=== PATIENT | male | born 1945 | race Caucasian/White ===

== ENCOUNTER → 2019-02-28 | Outpatient (CLI) | payer MEDICARE, SELFPAY ==
[2019-03-01 00:09] LABS: Absolute Neutrophil Count 4.6 X10^3/uL (2.0-7.7); Basophil# 0.05 X10^3/uL; Basophil% 0.7 % (0-1); Eosinophil# 0.45 X10^3/uL; Eosinophils% 6.5 % (0-5); Hematocrit 46.7 % (40-54); Hemoglobin 16.1 g/dl (13.0-16.5); Lymphocyte % 20.2 % (19-41); Mean Corp Hgb Conc 34.5 g/gl (32-36); Mean Corpuscular Hgb 29.4 pg (27.0-32.0); Mean Corpuscular Volume 85.4 fL (80-94); Mean Platelet Vol. 9.4 fl (6.2-12.0); Monocyte# 0.39 X10^3/uL; Monocyte% 5.6 % (0-10); Neutrophil # 4.62 X10^3/uL (2.7-7.7); Neutrophil % 66.9 % (47-70); Platelet Count 195 K/mm3 (150-450); RBC Distribution Width SD 40.6 fl (35.1-43.9); Red Blood Count 5.47 M/mm3 (4.6-6.2); White Blood Count 6.9 K/mm3 (4.4-11.0)
[2019-03-01 00:12] LABS: POSITIVE COUNT NO; POSITIVE DIFFERENTIAL NO; POSITIVE MORPHOLOGY NO
[2019-03-01 01:04] LABS: BUN 17 mg/dL (7-18); Glucose 133 mg/dL (74-106)
[2019-03-01 01:05] LABS: ALB/GLOB Ratio 1.4 RATIO (0.9-2.4); AST(SGOT) 19 U/L (15-37); Alanine Aminotransfer ALT/SGPT 24 U/L (16-61); Albumin, Serum 4.5 g/dL (3.2-5.0); Alkaline Phosphatase 77 U/L (45-117); Anion Gap 6 (5-15); BUN/Creat Ratio 14.2 RATIO (10-20); Calcium,Total 9.1 mg/dL (8.5-10.1); Chloride 105 mmol/L (98-107); Cholesterol 153 mg/dL (200); EST Glomerular Filtration Rate 63 mL/min (>60); Est Glom Filt Rate - Afr Amer 77 mL/min (>60); Globulin 3.3 g/dL (2.2-4.2); High Density Lipoprotein 53 mg/dL; PSA,Total - Annual Screen 2.15 ng/mL (0.00-4.00); Potassium 4.9 mmol/L (3.5-5.1); Protein, Total 7.8 g/dL (6.4-8.2); Sodium Level 140 mmol/L (136-145); Triglycerides 142 mg/dL; Very Low Density Lipoprotein 28 mg/dL (5-40)
== END | disposition home or self-care (01) ==
PROVIDERS: Referring Provider Nurse Practitioner; Visit Provider Nurse Practitioner
DX: I10 Essential (primary) hypertension (principal); E11.65 Type 2 diabetes mellitus with hyperglycemia; E78.00 Pure hypercholesterolemia, unspecified; R35.0 Frequency of micturition; Z12.5 Encounter for screening for malignant neoplasm of prostate
CPT/HCPCS: 80053; 80061; 84153; 85025; G0103

== ENCOUNTER → 2019-12-11 09:10 | Outpatient (CLI) | payer MEDICARE, SELFPAY ==
[2019-11-28 15:11] VITALS: BMI 31.1
--- NOTE | 2019-12-11 09:16 | US_ITS ---
PROCEDURES: ULTRASOUND AORTA REASON FOR EXAM: Male, 74 years old. AAA SCREENING TECHNIQUE: Ultrasound evaluation of the aorta was performed with real-time and static james-scale imaging. COMPARISON: None. FINDINGS: There is obscuration of the abdominal aorta by overlying bowel gas Aorta measures: Proximal 2.7 cm. Middle 2.0 cm. Distal 2.1 cm. Aorta measure transversely: Proximal 2.4 cm. Middle 1.9 cm. Distal 1.8 cm. There is no demonstrated aneurysm.. US/Aorta IMPRESSION: Normal abdominal aorta. Electronically Signed: Sy Olson, at 10:35 EST , Service support ,
--- NOTE | 2019-12-11 09:47 | RAD_ITS ---
STUDY: X-RAY - THORACIC SPINE REASON FOR EXAM: Male, 74 years old. PAIN WHEN WALKING X 6 MONTHS. UPPER THORACIC SPINE. NO KNOWN INJURY. TECHNIQUE: 3 view(s) of the thoracic spine were obtained. COMPARISON: None. FINDINGS: There is an increase in the normal thoracic kyphosis. There is no substantial scoliosis. There is demineralization of the thoracic spine with endplate spondylosis. There is multilevel disc space narrowing of the thoracic spine. The soft tissue structures are unremarkable. RAD/Thoracic Spine 3 Views IMPRESSION: Multilevel disc space narrowing and anterior spondylosis. Electronically Signed: Sy Olson, at 10:35 EST , Service support ,
== END ==
PROVIDERS: PCP Nurse Practitioner; Referring Provider Nurse Practitioner; Visit Provider Nurse Practitioner
DX: M54.6 Pain in thoracic spine (principal)
CPT/HCPCS: 72072; 76775

== ENCOUNTER → 2021-01-25 14:44 | Outpatient (CLI) | payer MEDICARE, SELFPAY ==
[2020-06-16 11:34] VITALS: BMI 30.7
[2021-01-25 16:04] LABS: Anion Gap 5 (5-15); BUN 23 mg/dL (7-18); BUN/Creat Ratio 18.3 RATIO (10-20); Calcium,Total 9.3 mg/dL (8.5-10.1); Chloride 104 mmol/L (98-107); Creatinine, Serum 1.26 mg/dL (0.70-1.30); EST Glomerular Filtration Rate 60 mL/min (>60); Est Glom Filt Rate - Afr Amer 72 mL/min (>60); Glucose 186 mg/dL (74-106); Potassium 4.1 mmol/L (3.5-5.1); Sodium Level 139 mmol/L (136-145)
== END ==
PROVIDERS: PCP Nurse Practitioner
DX: Z51.81 Encounter for therapeutic drug level monitoring (principal); Z79.899 Other long term (current) drug therapy
CPT/HCPCS: 36415; 80048

== ENCOUNTER → 2021-02-22 23:12 | Outpatient (CLI) | payer MEDICARE, SELFPAY ==
[2021-02-22 19:54] VITALS: BMI 31.8
[2021-02-22 23:31] LABS: Absolute Lymphocyte Count 1.43 X10^3/uL (0.83-4.51); Absolute Neutrophil Count 4.2 X10^3/uL (2.0-7.7); Basophil# 0.09 X10^3/uL; Basophil% 1.3 % (0-1); Eosinophil# 0.48 X10^3/uL; Eosinophils% 7.1 % (0-5); Hematocrit 45.8 % (40-54); Lymphocyte # 1.43 X10^3/ul (4.0); Lymphocyte % 21.3 % (19-41); Mean Corp Hgb Conc 32.8 g/dL (32-36); Mean Corpuscular Hgb 29.5 pg (27.0-32.0); Mean Platelet Vol. 9.5 fl (6.2-12.0); NRBC Flagged by Analyzer 0 % (0-5); Neutrophil # 4.24 X10^3/uL (2.7-7.7); Neutrophil % 63.1 % (47-70); Platelet Count 235 K/mm3 (150-450); RBC Distribution Width CV 12.2 % (11.6-14.6); RBC Distribution Width SD 40.6 fl (35.1-43.9); Red Blood Count 5.09 M/mm3 (4.6-6.2); White Blood Count 6.7 K/mm3 (4.4-11.0)
[2021-02-22 23:48] LABS: ALB/GLOB Ratio 1.3 RATIO (0.9-2.4); AST(SGOT) 15 U/L (15-37); Alanine Aminotransfer ALT/SGPT 33 U/L (16-61); Albumin, Serum 4.4 g/dL (3.2-5.0); Alkaline Phosphatase 88 U/L (45-117); Anion Gap 5 (5-15); BUN 21 mg/dL (7-18); BUN/Creat Ratio 17.4 RATIO (10-20); Calcium,Total 9.5 mg/dL (8.5-10.1); Chloride 104 mmol/L (98-107); Cholesterol 174 mg/dL (200); Creatinine, Serum 1.21 mg/dL (0.70-1.30); EST Glomerular Filtration Rate 62 mL/min (>60); Est Glom Filt Rate - Afr Amer 76 mL/min (>60); Globulin 3.4 g/dL (2.2-4.2); Glucose 129 mg/dL (74-106); High Density Lipoprotein 59 mg/dL; PSA,Total - Annual Screen 2.66 ng/mL (0.00-4.00); Protein, Total 7.8 g/dL (6.4-8.2); Sodium Level 138 mmol/L (136-145); Triglycerides 120 mg/dL; Very Low Density Lipoprotein 24 mg/dL (5-40)
== END ==
PROVIDERS: PCP Nurse Practitioner; Visit Provider Nurse Practitioner
DX: I10 Essential (primary) hypertension (principal); I48.91 Unspecified atrial fibrillation; E78.00 Pure hypercholesterolemia, unspecified; R35.0 Frequency of micturition; Z12.5 Encounter for screening for malignant neoplasm of prostate
CPT/HCPCS: 80053; 80061; 84153; 85025; G0103

== ENCOUNTER 2022-02-13 23:26 | Outpatient (CLI) | payer MEDICARE, SELFPAY ==
[2022-02-13 23:39] LABS: Absolute Lymphocyte Count 1.29 X10^3/uL (0.83-4.51); Basophil# 0.08 X10^3/uL; Eosinophil# 0.33 X10^3/uL; Eosinophils% 4.1 % (0-5); Hemoglobin 15.5 g/dL (13.0-16.5); Lymphocyte # 1.29 X10^3/ul (0.83-4.51); Lymphocyte % 15.9 % (19-41); Mean Corpuscular Hgb 28.7 pg (27.0-32.0); Mean Platelet Vol. 9.2 fl (6.2-12.0); Monocyte# 0.43 X10^3/uL; Monocyte% 5.3 % (0-10); NRBC Flagged by Analyzer 0 % (0-5); Neutrophil # 5.96 X10^3/uL (2.7-7.7); Neutrophil % 73.5 % (47-70); Platelet Count 272 K/mm3 (150-450); RBC Distribution Width SD 40.8 fl (35.1-43.9); White Blood Count 8.1 K/mm3 (4.4-11.0)
[2022-02-13 23:52] LABS: ALB/GLOB Ratio 1.1 RATIO (0.9-2.4); AST(SGOT) 22 U/L (15-37); Alanine Aminotransfer ALT/SGPT 49 U/L (16-61); Albumin, Serum 4.2 g/dL (3.2-5.0); Alkaline Phosphatase 99 U/L (45-117); Anion Gap 7 (5-15); BUN 23 mg/dL (7-18); BUN/Creat Ratio 17.7 RATIO (10-20); Calcium,Total 9.5 mg/dL (8.5-10.1); Chloride 105 mmol/L (98-107); Cholesterol 195 mg/dL (200); EST Glomerular Filtration Rate 57 mL/min (>60); Est Glom Filt Rate - Afr Amer 69 mL/min (>60); Globulin 3.7 g/dL (2.2-4.2); Glucose 175 mg/dL (74-106); High Density Lipoprotein 53 mg/dL; Potassium 4.6 mmol/L (3.5-5.1); Protein, Total 7.9 g/dL (6.4-8.2); Sodium Level 139 mmol/L (136-145); Triglycerides 201 mg/dL; Very Low Density Lipoprotein 40 mg/dL (5-40)
== END 2022-02-13 23:59 | disposition home or self-care (01) ==
PROVIDERS: PCP Nurse Practitioner; Visit Provider Nurse Practitioner
DX: E11.65 Type 2 diabetes mellitus with hyperglycemia (principal); E78.00 Pure hypercholesterolemia, unspecified; I10 Essential (primary) hypertension
CPT/HCPCS: 80053; 80061; 85025

== ENCOUNTER → 2022-08-14 | Outpatient (CLI) | payer MEDICARE, SELFPAY ==
[2022-08-14 21:56] LABS: Lyme Ab Screen Interpretation REF LAB
[2022-08-14 22:21] LABS: D-Dimer Quantitative (DVT/PE) 0.33 FEU/ug/m (0.27-0.49)
[2022-08-14 22:25] LABS: ALB/GLOB Ratio 1.2 RATIO (0.9-2.4); AST(SGOT) 19 U/L (15-37); Alanine Aminotransfer ALT/SGPT 40 U/L (16-61); Alkaline Phosphatase 97 U/L (45-117); Anion Gap 8 (5-15); BUN 22 mg/dL (7-18); BUN/Creat Ratio 15.2 RATIO (10-20); CRP, High Sensitivity Cardiac 1.66 mg/L; Calcium,Total 9.3 mg/dL (8.5-10.1); Chloride 105 mmol/L (98-107); Creatinine, Serum 1.45 mg/dL (0.70-1.30); EST Glomerular Filtration Rate 50 mL/min (>60); Est Glom Filt Rate - Afr Amer 61 mL/min (>60); Globulin 3.4 g/dL (2.2-4.2); Glucose 207 mg/dL (74-106); Potassium 4.6 mmol/L (3.5-5.1); Protein, Total 7.4 g/dL (6.4-8.2); Sodium Level 141 mmol/L (136-145)
[2022-08-14 22:31] LABS: Vitamin B12 > 2000 pg/mL (211-911)
[2022-08-14 22:33] LABS: Hemoglobin A1c 8.3 % (3.8-5.6)
[2022-08-18 15:30] LABS: Vitamin D 1,25-Dihydroxy 28.9 pg/mL (24.8-81.5)
[2022-08-18 15:41] LABS: EBV Acute VCA IgM < 36.0 U/mL (0.0-35.9); Lyme Scn Total Ab w/Rflx Negative (Negative); PARVOVIRUS B19 IGG 4.1 index (0.0-0.8); PARVOVIRUS B19 IGM 0.2 index (0.0-0.8)
== END | disposition home or self-care (01) ==
PROVIDERS: PCP Nurse Practitioner; Visit Provider Nurse Practitioner
DX: E11.65 Type 2 diabetes mellitus with hyperglycemia (principal); E53.9 Vitamin B deficiency, unspecified; E55.9 Vitamin D deficiency, unspecified; R53.1 Weakness; T14.8XXA Other injury of unspecified body region, initial encounter; X58.XXXA Exposure to other specified factors, initial encounter; E78.00 Pure hypercholesterolemia, unspecified; R53.82 Chronic fatigue, unspecified
CPT/HCPCS: 80053; 82607; 82652; 83036; 85379; 86141; 86618; 86664; 86665; 86747

== ENCOUNTER 2022-09-23 03:35 | Inpatient (IN) | payer MEDICARE, SELFPAY ==
[2022-09-23] VITALS (13 sets, daily range): BP systolic 131–172; BP diastolic 60–87; PULSE 65–93; RESP 16–20; TEMP 36–36.3; O2SAT 90–99; BMI 29.0
--- NOTE | 2022-09-23 04:30 | HP.PCM.HOS_ITS ---
HPI - General General Date of Admission: 09/23/22 Date of Service: 09/23/22 Chief Complaint: Dyspnea, cough, confusion. HPI Narrative The patient is a 77 y/o M w/ PMHx: Diabetes mellitus type II, HTN, HLD, PAF, COPD, Hx Panic attacks who presents to the [place] ED on 09/23/22 with history of increased fatigue, weakness, malaise with onset cough, mildly productive sputum as well as dyspnea with associated fall day prior to presentation but reportedly fell several times over the last several weeks prompting ED evaluation. Patient also since onset of illness has become increasingly confused and was noted to be agitated, frequently attempting to get up and out of the ED bed while in the OSH ED. VS: Initial 86% on RA initially, HR 93, BP 171/89, T 99.7, RR 20-->94% on 2L NC, RR 21, HR 86, BP 126/68. CBC: WBC 5.1, Hgb 15.6, Plts 122 without marked shift CMP: Na 137, K 4.4, Chl 101, CO2 25, BUN/Cr 21/1.03, glucose 176, hepatic profile unremarkable (08/31/2022 BUN/creatinine 22/1.45) COVID: Negative PCR Influenza: A positive CXR with increased intersitital BL lung base opacities, possible atelectasis CT head with no acute intracranial abnormality, chronic changes CT Chest without contrast: Linear atelectasis lung bases, calcified granuloma R lung base EKG: SR without acute evidence of ischemia Troponin: 36->delta 33 (prior 50s) LA: 1.2 UA: Unremarkable Bld Cx x 2 pending per OSH ED Medications: IV Rocephin, IV Azithromycin-->tamiflu requested, haldol 2.5 mg administered at OSH ED. [facility] Medical History (Updated 09/23/22 @ 05:[address] Brianne Ya MD) Aorta disorder COPD (chronic obstructive pulmonary disease) Diabetes mellitus, type 2 Foraminal stenosis of cervical region High cholesterol Hypertension PAF (paroxysmal atrial fibrillation) Panic attacks Type 2 diabetes mellitus Home Medications diltiazem HCl 120 mg capsule,extended release 24 hr 120 mg PO DAILY #30 caps 02/13/22 [Rx Last Taken Unknown] flecainide 100 mg tablet 100 mg PO Q12H #60 tabs 02/13/22 [Rx Last Taken Unknown] lisinopril 20 mg tablet 20 mg PO DAILY #90 tabs 02/13/22 [Rx Last Taken Unknown] metoprolol succinate 100 mg tablet,extended release 24 hr 100 mg PO DAILY #90 tabs 02/13/22 [Rx Last Taken Unknown] rivaroxaban 20 mg tablet (Xarelto) 20 mg PO DAILY #30 tabs 02/13/22 [Rx Last Taken Unknown] empagliflozin 25 mg-metformin ER 1,000 mg tablet,extended release 24hr (Synjardy XR) 1 tab PO DAILY #90 ea 02/16/22 [Rx Last Taken Unknown] hydroxyzine HCl 10 mg tablet 10 mg PO TID-QID PRN anxiety panic attack #40 tabs 03/21/22 [Rx Last Taken Unknown] fluticasone 250 mcg-salmeterol 50 mcg/dose blistr powdr for inhalation (Advair Diskus) 1 inh inhalation BID asthma 09/23/22 [History Last Taken Unknown] Allergy/AdvReac Type Severity Reaction Status Date / Time Penicillins Allergy Severe u Verified 09/23/22 04:44 lorazepam [From Ativan] AdvReac Severe caused him Verified 09/23/22 04:44 to have nightmares and see monsters Family History (Updated 09/23/22 @ 01:[address] Brianne Ya MD) Father Cancer Colon cancer Mother Heart disease High cholesterol Surgical History No history of previous surgery Social History (Updated 09/23/22 @ 01:[address] Brianne Ya MD) household members: spouse Smoking Status: Never smoker alcohol intake: never substance use type: does not use ROS ROS Narrative ROS INFORMATION GIVEN PER PATIENT FAMILY GIVEN HIS ENCEPHALOPATHY: Admission Review of Systems: CONSTITUTIONAL: No weight loss, fever, chills, + low grade T, weakness or fatigue. HEENT: + congestion, rhinorrhea. Eyes: No visual loss, blurred vision, double vision or yellow sclerae. Ears, Nose, Throat: No hearing loss, sneezing. SKIN: No rash or itching, lesions, wounds. CARDIOVASCULAR: No chest pain, chest pressure or chest discomfort, palpitations, edema, orthopnea, syncopal events. RESPIRATORY: + shortness of breath, cough without marked sputum, No wheezing, hemoptysis. GASTROINTESTINAL: + anorexia, No nausea, vomiting or diarrhea, abdominal pain, melena, BRBPR. GENITOURINARY: No dysuria, frequency, urgency or retention. NEUROLOGICAL: No headache, dizziness, syncope, paralysis, ataxia, numbness or tingling in the extremities, focal weakness, change in bowel or bladder control, seizure. MUSCULOSKELETAL: No muscle, back pain, joint pain or stiffness. HEMATOLOGIC: No anemia, bleeding or bruising. LYMPHATICS: No enlarged nodes. No history of splenectomy. PSYCHIATRIC: No history of depression or anxiety. ENDOCRINOLOGIC: No reports of sweating, cold or heat intolerance. No polyuria or polydipsia. ALLERGIES: No history of asthma, hives, eczema or rhinitis. Physical Exam Narrative Physical Examination: General: Awake, alert, oriented to self, place, month but not year, remains cooperative, laying in the PCU bed, fatigued and ill-appearing. Skin: Normal color, normal turgor, no icterus, no cyanosis. HEENT: AT/NC, EOMI, PERRLA, dry MM, no carotid bruits or JVD noted. Lungs: Diminished, greater bases, mildly increased respiratory rate, no evidence of any distress, no rales, ronchi or wheezing. Heart: Regular rate and rhythm; no gallop, rub audible. Abdomen: Soft, overweight, NTTP, ND, mildly hyperactive BS, no HSM. Extremities: No cyanosis, clubbing, or edema. Neurological: Patient awake, alert, oriented as noted, cognitive function not baseline intact with mild encephalopathy secondary to acute presentation; pupils equally reactive to light and accommodation, cranial nerves grossly normal, moving all 4 extremities, no focal deficits, strength moderately to severely globally decreased secondary to acute presentation. Psychiatric: Affect appears fatigued, ill-appearing, no acute evidence of depressive or anxiety feelings. Assessment & Plan Assessment/Plan (1) Influenza A: PLAN: Plan The patient is a 77 y/o M w/ PMHx: Diabetes mellitus type II, HTN, HLD, PAF, COPD, Hx Panic attacks who presents to the [place] ED on 09/23/22 with history of increased fatigue, weakness, malaise with onset cough, mildly productive sputum as well as dyspnea with associated fall day prior to presentation but reportedly fell several times over the last several weeks prompting ED evaluation. #1. Acute Encephalopathy secondary to Influenza A Viral Syndrome w/ associated Acute Hypoxia: Will admit to PCU on telemetry given ED need for haldol, will maintain on tamiflu, maintain on oxygen with wean as tolerated, holding home inhalers and in the interim will maintain on ATC duonebs, PRN albuterol, HOB, IS parameters w/ pending Bld cx x 2 from OSH ED, PT/OT/CM consultations for discharge planning. #2. Chronic COPD: Will maintain on oxygen with wean as tolerated to room air, hold home inhalers and in the interim placed on ATC duonebs, PRN albuterol, HOB, IS parameters. #3. Diabetes mellitus type II: Hold oral home regimen, ADA diet, accu checks w/ ISS, recent HgbA1c noted 08/14/22 8.3%. #4. PAF: Continue patient home Xarelto regimen as well as metoprolol and flecainide as well as diltiazem, encourage continued outpatient follow-up closely with cardiology. #5. Hx QT prolongation: QTc 452 at OSH ED, prior noted prolonged, administered low dose 2.5 mg haldol x 1 at outside hospital ED. If need for further Haldol we will plan repeat EKGs and will maintain on telemetry #6. Hypertension: Continue home regimen including metoprolol, lisinopril, diltiazem with hold parameters as needed, PRN hydralazine. #7. Hyperlipidemia: Not on regimen, defer to outpatient. #8. History of panic attacks: We will have patient as needed low-dose hydroxyzine. #9. DVT prophylaxis: SCDs, continue patient on Xarelto regimen. #10. CODE status: Patient does not have healthcare Pap patent prosecution attorney nor living will in place. Discussed CODE status with family at length including difference between FULL code, DNR-CCA and DNR-CC status. Following discussions about the differences in these status, requested Full Code status. Advanced Care Planning Face to Face Time: 16 minutes. Charges/Coding Visit Charges Inpatient E&M: 78489 Init Hosp L3 Procedures Hospitalists Procedures: 84124 Advncd Care Plan 30 Min
[2022-09-23] MEDS: 0.9% Normal Saline 1,000 ML 100 ML IV ×2 (04:52→12:59)
[2022-09-23 07:00] LABS: Bedside Glucose 135 mg/dL (74-106)
[2022-09-23 07:12] LABS: Absolute Lymphocyte Count 0.53 X10^3/uL (0.83-4.51); Absolute Neutrophil Count 3.8 X10^3/uL (2.0-7.7); Basophil# 0.03 X10^3/uL; Basophil% 0.6 % (0-1); Eosinophil# 0.04 X10^3/uL; Eosinophils% 0.8 % (0-5); Hematocrit 43.8 % (40-54); Hemoglobin 15.3 g/dL (13.0-16.5); Lymphocyte # 0.53 X10^3/ul (0.83-4.51); Lymphocyte % 11.1 % (19-41); Mean Corp Hgb Conc 34.9 g/dL (32-36); Mean Corpuscular Hgb 30.7 pg (27.0-32.0); Mean Corpuscular Volume 87.8 fL (80-94); Mean Platelet Vol. 8.9 fl (6.2-12.0); Monocyte# 0.38 X10^3/uL; Monocyte% 7.9 % (0-10); NRBC Flagged by Analyzer 0 % (0-5); Neutrophil % 79.4 % (47-70); POSITIVE DIFFERENTIAL YES; Platelet Count 122 K/mm3 (150-450); RBC Distribution Width CV 12.7 % (11.6-14.6); RBC Distribution Width SD 40.8 fl (35.1-43.9); Red Blood Count 4.99 M/mm3 (4.6-6.2); White Blood Count 4.8 K/mm3 (4.4-11.0)
[2022-09-23] MEDS: Ipratropium/Albuterol Sulfate 3 ML AMPUL.NEB INHALATION ×3 (07:14→19:59)
[2022-09-23 07:18] LABS: Differential Indicated SCAN CRITERIA MET
[2022-09-23 07:41] LABS: ALB/GLOB Ratio 1.2 RATIO (0.9-2.4); AST(SGOT) 21 U/L (15-37); Alanine Aminotransfer ALT/SGPT 33 U/L (16-61); Albumin, Serum 3.6 g/dL (3.2-5.0); Alkaline Phosphatase 92 U/L (45-117); Anion Gap 8 (5-15); BUN 18 mg/dL (7-18); BUN/Creat Ratio 18.7 RATIO (10-20); Calcium,Total 8.6 mg/dL (8.5-10.1); Chloride 103 mmol/L (98-107); Creatinine, Serum 0.96 mg/dL (0.70-1.30); EST Glomerular Filtration Rate 81 mL/min (>60); Est Glom Filt Rate - Afr Amer 98 mL/min (>60); Estimated Creatinine Clearance 79.46 ml/min; Globulin 3.1 g/dL (2.2-4.2); Glucose 118 mg/dL (74-106); Potassium 3.9 mmol/L (3.5-5.1); Protein, Total 6.7 g/dL (6.4-8.2); Sodium Level 137 mmol/L (136-145)
[2022-09-23 07:58] LABS: Platelet Estimate ADEQUATE (ADEQ); Red Cell Morphology NORM C+C NORMAL (NORM C&C)
[2022-09-23] MEDS: Lisinopril 20 MG Tablet PO (08:12)
[2022-09-23] MEDS: dilTIAZem CD 120 MG Capsule PO (08:13)
[2022-09-23] MEDS: Haloperidol 1 MG Tablet PO ×2 (08:13→20:52)
[2022-09-23] MEDS: Oseltamivir Phosphate 75 MG Capsule PO ×2 (08:13→20:52)
[2022-09-23] MEDS: Metoprolol(XL)Succ 100 MG Tablet PO (08:13)
[2022-09-23] MEDS: Rivaroxaban 20 MG Tablet PO (08:13)
[2022-09-23] MEDS: Flecainide 100 MG Tablet PO ×2 (08:20→20:58)
--- NOTE | 2022-09-23 09:08 | CASEMGMT ---
Addendum entered by Madelaine So 09/23/22 14:05: RADHA BONILLA reviewed therapy notes, recommending HHC at this time, and into pt room. Discussed with patient therapy session. Pt states he does not really want home therapy and would like to see how he does tomorrow. Patient was provided a list of HHC providers including quality and resource use data and consistent with the patient?s preferred geographic region, medical needs, and insurance network [facility]. Original Note: RADHA BONILLA Assessment: Face to Face with pt for initial transition planning/care coordination assessment. RADHA BONILLA introduced self and role at [facility], pt voices understanding and consents to assessment. Pt is A/O x4 and answers all questions appropriately at this time. Pt lying in bed with oxygen on in no distress. Care providers, pharmacy, and demographics verified/updated. Admitting Dx: hypoxia, influenza A PCP:Ghazala Beck NP Specialists: Pt denies. Preferred Pharmacy: [facility] Insurance: Close [facility] Prescription Benefit: yes LW/HPOA: Pt denies having a LW/DPOA and denies need for info regarding AD. LNOK: Radha Tate, Living Arrangements: Pt lives with in a two story house with 3 steps to enter with a rail. Pt reports he is typically I in ADL's and denies concerns at home. States right now his may need to help some with ADL's due to his weakness. Transportation: Pt drives self and denies concerns with transportation. DME/HHC/SNF: Pt has a shower chair and FWW that he does not use. Pt has a cane as well. Pt does not check his blood sugars or have a BGM. Pt has a pulse ox. Pt has had [facility] homecare in the past and denies SNF's. Pt states no concerns with going home at time of dc. Discussed pt strength and he denies any homegoing needs for strengthening. Made pt aware RADHA BONILLA will follow to see how he does with therapy and if recommended will revisit this. Pt states no further concerns/needs. CM to follow. Advised pt to ask CM if any further question/concerns/needs arise, voices understanding. Pt Goal: Home Plan: Home, follow therapy and need for oxygen
--- NOTE | 2022-09-23 10:00 | EKG12_ITS ---
Test Reason : AM EKG Blood Pressure : / mmHG Vent. Rate : 090 BPM Atrial Rate : 090 BPM P-R Int : 204 ms QRS Dur : 102 ms QT Int : 392 ms P-R-T Axes : 012 -42 -01 degrees QTc Int : 479 ms Normal sinus rhythm Left axis deviation Abnormal ECG No previous ECGs available Confirmed by KEVIN HUERTA, RYLIE ([id number]), non linear editor FRANTZ MOMIN ([id number]) on 09/27/2022 2:45:55 PM Referred By: Confirmed By:RYLIE BROWN MD
[2022-09-23 11:45] LABS: Bedside Glucose 152 mg/dL (74-106)
[2022-09-23] MEDS: Glucerna Shake 120 ML LIQUID PO ×3 (12:59→20:51)
--- NOTE | 2022-09-23 14:53 | PCM.HOSP.N ---
Hospitalist Note Patient was seen and examined today, he is appears comfortable on 2 L/min nasal cannula oxygen, he is positive for influenza A. Patient states he was vaccinated a few weeks ago for the flu. We will attempt to wean the patient's oxygen off if possible. He remains on Tamiflu.
[2022-09-23 17:05] LABS: Bedside Glucose 97 mg/dL (74-106)
[2022-09-23 21:15] LABS: Bedside Glucose 144 mg/dL (74-106)
[2022-09-24] VITALS (10 sets, daily range): BP systolic 141–159; BP diastolic 63–82; PULSE 60–67; RESP 16–18; TEMP 36.4–36.5; O2SAT 91–95
[2022-09-24] MEDS: 0.9% Normal Saline 1,000 ML 100 ML IV ×2 (00:03→09:27)
[2022-09-24] MEDS: Haloperidol 1 MG Tablet PO (04:49)
--- NOTE | 2022-09-24 05:55 | RAD_ITS ---
STUDY: X-RAY CHEST REASON FOR EXAM: Male, 77 years old. Pneumonia, influenza A+ TECHNIQUE: Portable, upright, AP chest x-ray COMPARISON: None. FINDINGS: Bilateral lower lung infiltrates. Left lung base subsegmental atelectasis. There is no demonstrated pleural abnormality. Normal size heart. Normal mediastinum and brock. Normal visualized pulmonary arteries. Normal visualized aortic arch and descending thoracic aorta. There is no demonstrated abnormality of the visualized soft tissue structures of the upper abdomen. RAD/Chest 1 View (Portable) IMPRESSION: Bilateral lower lung base infiltrate suspicious for pneumonia. Left lung base subsegmental atelectasis. Electronically Signed: Kenneth Thomas MD at 6:49 EST ,
[2022-09-24 06:46] LABS: Bedside Glucose 134 mg/dL (74-106)
[2022-09-24] MEDS: Ipratropium/Albuterol Sulfate 3 ML AMPUL.NEB INHALATION (07:11)
[2022-09-24] MEDS: Lisinopril 20 MG Tablet PO (08:33)
[2022-09-24] MEDS: Oseltamivir Phosphate 75 MG Capsule PO (08:33)
[2022-09-24] MEDS: Rivaroxaban 20 MG Tablet PO (08:33)
[2022-09-24] MEDS: Metoprolol(XL)Succ 100 MG Tablet PO (08:34)
[2022-09-24] MEDS: dilTIAZem CD 120 MG Capsule PO (08:35)
[2022-09-24] MEDS: Glucerna Shake 120 ML LIQUID PO (09:27)
[2022-09-24] MEDS: Flecainide 100 MG Tablet PO (09:27)
--- NOTE | 2022-09-24 09:51 | DCINST_ITS ---
Discharge Instructions Diet Discharge Diet: 1800 Calorie Control Diet Activity Discharge Activity: Return to Normal Activity Weight Bearing Status: Full weight bearing Additional Activity Instructions:: use a mask when going out for the next three days, try to avoid contact with people for the next three days Follow Up Care Test Results: Test results from this visit will be discussed in further detail at your follow- up appointment, if applicable. Discharge Plan Admission Admit Date/Time: 09/23/22 04:30 Primary Reason for Your Visit: influenza A Attending Provider: Gustavo Pickett Primary Care Provider: Ghazala Beck NP Consulting Providers: Brianne Ya Discharge Orders/Prescriptions Prescriptions: New oseltamivir 75 mg Capsule 75 mg PO BID Qty: 8 0RF Continued diltiazem HCl 120 mg capsule,extended release 24hr 120 mg PO DAILY Qty: 30 12RF flecainide 100 mg tablet 100 mg PO Q12H Qty: 60 12RF lisinopril 20 mg tablet 20 mg PO DAILY Qty: 90 3RF Xarelto 20 mg tablet 20 mg PO DAILY Qty: 30 12RF metoprolol succinate 100 mg tablet extended release 24 hr 100 mg PO DAILY Qty: 90 3RF hydroxyzine HCl 10 mg tablet 10 mg PO TID-QID PRN (Reason: anxiety panic attack) Qty: 40 6RF Rx Instructions: take for the panic or anxiety attacks fluticasone propion-salmeterol [Advair Diskus] 250-50 mcg/dose blister with device 1 inh INHALATION BID Synjardy XR 25-1,000 mg tablet, IR - ER, biphasic 24hr 1 tab PO DAILY Qty: 90 3RF Referrals / Follow Up: Ghazala Beck NP, [employer] [Primary Care Provider] - Disposition Disposition (needs filled in before D/C Order can be placed): Home, Self Care
--- NOTE | 2022-09-24 10:13 | PCM.DC.SUM ---
Providers Date of Admission: 09/23/22 Date of Discharge: 09/24/22 Primary Care Physician: MYNOR Santoyo Reason For Visit: HYPOXIA, INFLUENZA A Diagnosis Discharge Diagnosis (1) Influenza A: Status: Acute Code(s): J10.1 - Influenza due to other identified influenza virus with other respiratory manifestations Plan 1. Influenza A pneumonia #2 hypoxia secondary to #1 #3 chronic obstructive pulmonary disease #4 type 2 diabetes Medications at Discharge Home Medications diltiazem HCl 120 mg capsule,extended release 24 hr 120 mg PO DAILY #30 caps 02/13/22 flecainide 100 mg tablet 100 mg PO Q12H #60 tabs 02/13/22 lisinopril 20 mg tablet 20 mg PO DAILY #90 tabs 02/13/22 metoprolol succinate 100 mg tablet,extended release 24 hr 100 mg PO DAILY #90 tabs 02/13/22 rivaroxaban 20 mg tablet (Xarelto) 20 mg PO DAILY #30 tabs 02/13/22 empagliflozin 25 mg-metformin ER 1,000 mg tablet,extended release 24hr (Synjardy XR) 1 tab PO DAILY #90 ea 02/16/22 hydroxyzine HCl 10 mg tablet 10 mg PO TID-QID PRN anxiety panic attack #40 tabs 03/21/22 fluticasone 250 mcg-salmeterol 50 mcg/dose blistr powdr for inhalation (Advair Diskus) 1 inh inhalation BID asthma 09/23/22 oseltamivir 75 mg capsule 75 mg PO BID #8 caps 09/24/22 Hospital Course Operations None Procedures None Summary of Care Provided Minutes Spent on Discharge: 31 Hospital Course: 77-year-old white male was transferred from [place] emergency room as a direct admission to PCU due to influenza A pneumonia and hypoxia. Patient was kept on Tamiflu during his hospital stay, he only required low-flow oxygen via nasal cannula. Patient had no untoward events during his hospitalization, on the morning of 09/24/2022, patient was seen and examined: On examination he appeared in good health and spirits. Vital signs as documented. Skin warm and dry and without overt rashes. Neck without JVD, neck was supple, trachea midline, thyroid was normal. Lungs clear bilaterally, normal air movement was noted. Heart exam notable for regular rhythm, normal sounds and absence of murmurs, rubs or gallops. Abdomen unremarkable and without evidence of organomegaly, masses, or abdominal aortic enlargement. Bowel sounds are present, abdomen is not distended. Extremities nonedematous, no cyanosis was noted, no clubbing was noted. Neuro: Cranial nerves II through XII are grossly intact, no focal motor deficits were noted, sensation to light touch and pinprick intact, motor exam 5/5 throughout. Psych: Patient is alert and oriented x3, he does not appear anxious or depressed, he does not appear agitated. Chest x-ray on 09/24/2022 showed areas of infiltrate-this was believed to be secondary to influenza a pneumonia, patient did not appear unwell and was able to ambulate without the need for oxygen. Patient was felt to be stable for discharge home on 09/24/2022, he was given a prescription for Tamiflu. Weight / BMI Weight Weight: 105.7 kg Body Mass Index (BMI) 29.0 ABG / Lab / Microbiology Data Result Diagrams: 09/23/22 06:22 09/23/22 06:22 Laboratory: Laboratory Results - last 24 hr 09/23/22 11:12: POC Glucose 152 H 09/23/22 16:46: POC Glucose 97 09/23/22 20:47: POC Glucose 144 H 09/24/22 06:09: POC Glucose 134 H Microbiology: Microbiology 09/23/22 05:21 Mucosa - Nasopharyngeal Respiratory Panel (PCR) - Final Influenza A (Subtype H3) Radiography Diagnostic Testing: Radiology Impression Chest X-Ray 09/24/22 05:55 IMPRESSION: Bilateral lower lung base infiltrate suspicious for pneumonia. Left lung base subsegmental atelectasis. Electronically Signed: Kenneth Thomas MD at 6:49 EST , D/C Instructions Discharge Diet: 1800 Calorie Control Diet Weight Bearing Status: Full weight bearing Additional Activity Instructions: use a mask when going out for the next three days, try to avoid contact with people for the next three days Meaningful Use Info Meaningful Use Diagnoses (Choose all that apply): None applicable Discharge Plan Admission Admit Date/Time: 09/23/22 04:30 Primary Reason for Your Visit: influenza A Attending Provider: Gustavo Pickett Primary Care Provider: Ghazala Beck NP Consulting Providers: Brianne Ya Discharge Orders/Prescriptions Prescriptions: New oseltamivir 75 mg Capsule 75 mg PO BID Qty: 8 0RF Continued diltiazem HCl 120 mg capsule,extended release 24hr 120 mg PO DAILY Qty: 30 12RF flecainide 100 mg tablet 100 mg PO Q12H Qty: 60 12RF lisinopril 20 mg tablet 20 mg PO DAILY Qty: 90 3RF Xarelto 20 mg tablet 20 mg PO DAILY Qty: 30 12RF metoprolol succinate 100 mg tablet extended release 24 hr 100 mg PO DAILY Qty: 90 3RF hydroxyzine HCl 10 mg tablet 10 mg PO TID-QID PRN (Reason: anxiety panic attack) Qty: 40 6RF Rx Instructions: take for the panic or anxiety attacks fluticasone propion-salmeterol [Advair Diskus] 250-50 mcg/dose blister with device 1 inh INHALATION BID Synjardy XR 25-1,000 mg tablet, IR - ER, biphasic 24hr 1 tab PO DAILY Qty: 90 3RF Referrals / Follow Up: Ghazala Beck NP, [employer] [Primary Care Provider] - Disposition Disposition (needs filled in before D/C Order can be placed): Home, Self Care Charges/Coding Visit Charges OBSV E&M: 45320 Observation care discharge
== END 2022-09-24 10:13 | disposition home or self-care (01) | DRG 194 ==
PROVIDERS: Admitting Provider Family Medicine; PCP Nurse Practitioner; Visit Provider Internal Medicine
DX: J10.01 Influenza due to other identified influenza virus with the same other identified influenza virus pneumonia (principal); G93.40 Encephalopathy, unspecified; J44.0 Chronic obstructive pulmonary disease with (acute) lower respiratory infection; E11.9 Type 2 diabetes mellitus without complications; I48.0 Paroxysmal atrial fibrillation; E78.5 Hyperlipidemia, unspecified; I10 Essential (primary) hypertension; F41.0 Panic disorder [episodic paroxysmal anxiety]; Z79.01 Long term (current) use of anticoagulants; R09.02 Hypoxemia; B97.89 Other viral agents as the cause of diseases classified elsewhere
CPT/HCPCS: 36415; 71045; 80053; 82962; 85025; 87633; 93005; 94640; 96360; 96361; 97162; 97165; 97802; 99218; 99251; J7030; G0378; G0463

== ENCOUNTER 2023-03-13 14:48 | Inpatient (IN) | payer MEDICARE, SELFPAY ==
[2023-03-13 14:53] VITALS: BP 113/62; PULSE 78; RESP 15; RESP 16; TEMP 36.3; O2SAT 91; BMI 26.5; BMI 26.6
--- NOTE | 2023-03-13 16:47 | NURSING ---
Call to MORENA Beck's office inquiring about vacations. No previous PNE vacinations on record.
[2023-03-13 16:50] LABS: Bedside Glucose 117 mg/dL (74-106)
[2023-03-13] MEDS: Docusate Sodium 100 MG Capsule PO (18:11)
[2023-03-13] MEDS: Glucerna Shake 120 ML LIQUID PO (18:11)
[2023-03-13] MEDS: Rivaroxaban 20 MG Tablet PO (18:11)
[2023-03-13] MEDS: Fluticasone/Salmeterol 232-14 Inhaler 1 PUFF INHALATION (18:12)
--- NOTE | 2023-03-13 19:33 | PCM.HP.STD ---
[facility] - General General Date of Admission: 03/13/23 Date of Service: 03/13/23 Chief Complaint: Here for rehabilitation. [facility] Narrative YANNA VÁZQUEZ, is a 77 Male who presents with followin02/15/[address] [facility]. 02/15/2023 Dr. Rosario performed C3-C4 spinal fusion for progressive cervical myelopathy, quadraplegia. C-collar x 6 weeks, follow up with neurosurgery. 02/21/2023 Discharge to [facility]. 02/21/2023 Admit to [facility] for acute inpatient rehabilitation. 02/23/2023 Unresponsive, pulseless, CPR, ROSC after 3 minutes. EMS noted patient awake, speaking, glucose 300's. 02/23/2023 Admit to [facility]. CT abdomen showed possible cholecystitis. CT chest showed bilateral rib fractures, probably from CPR. CT brain, CT CTLS spine negative. 2 liter IV fluid bolus, Vancomycin, Rocephin, insulin drop given for euglycemic DKA, sepsis, acute cholecystitis. 02/27/2023 Sedated, confused. 03/01/2023 [place] removed. 03/12/2023 Delirium improved. Euglycemic DKA secondary to SGLT2i, stop Jardiance. Acalculous cholecystitis treated with antibiotics, General Surgery recommended no surgery, no cholecystostomy tube. 03/13/2023 Admit to TCU with debility, here for rehabilitation, strengthening, prior to discharge home with . [facility] Medical History (Updated 03/13/23 @ 19:[address] Segundo Archibald MD) Aorta disorder COPD (chronic obstructive pulmonary disease) Diabetes mellitus, type 2 Foraminal stenosis of cervical region High cholesterol Hypertension Influenza A PAF (paroxysmal atrial fibrillation) Panic attacks Pneumonia TIA (transient ischemic attack) Type 2 diabetes mellitus Home Medications fluticasone 250 mcg-salmeterol 50 mcg/dose blistr powdr for inhalation (Advair Diskus) 1 inh inhalation BID asthma 09/23/22 [History Last Taken Unknown] acetaminophen 500 mg tablet 1,000 mg PO Q8H PRN Pain 03/13/23 [History Last Taken Unknown] diltiazem HCl 180 mg capsule,24 hr,extended release (Tiazac) 180 mg PO DAILY heart 03/13/23 [History Last Taken Unknown] docusate sodium 100 mg capsule 100 mg PO BID constipation 03/13/23 [History Last Taken Unknown] insulin glargine 100 unit/mL (3 mL) subcutaneous pen 15 unit subcut DAILY blood sugar 03/13/23 [History Last Taken Unknown] insulin lispro 100 unit/mL subcutaneous pen 0 - 6 unit subcut ACHS blood sugar 03/13/23 [History Last Taken Unknown] lisinopril 20 mg tablet 20 mg PO DAILY blood pressure 03/13/23 [History Last Taken Unknown] melatonin 10 mg tablet 10 mg PO QHS sleep 03/13/23 [History Last Taken Unknown] metformin 1,000 mg tablet 1,000 mg PO DAILY blood sugar 03/13/23 [History Last Taken Unknown] metoprolol succinate 100 mg tablet,extended release 24 hr 100 mg PO DAILY blood pressure 03/13/23 [History Last Taken Unknown] quetiapine 25 mg tablet 25 mg PO QHS sleep 03/13/23 [History Last Taken Unknown] rivaroxaban 20 mg tablet (Xarelto) 20 mg PO DAILY blood thinner 03/13/23 [History Last Taken Unknown] sennosides 8.6 mg-docusate sodium 50 mg tablet (Senna-S) 8.6 - 50 tab PO DAILY PRN Constipation 03/13/23 [History Last Taken Unknown] tizanidine 4 mg tablet 4 mg PO Q8H PRN muscle relaxer 03/13/23 [History Last Taken Unknown] Allergy/AdvReac Type Severity Reaction Status Date / Time Penicillins Allergy Severe u Verified 09/23/22 04:44 lorazepam [From Ativan] AdvReac Severe caused him Verified 09/23/22 04:44 to have nightmares and see monsters Family History Father Cancer Colon cancer Mother Heart disease High cholesterol Surgical History (Updated 03/13/23 @ 19:[address] Segundo Archibald MD) History of fusion of cervical spine Social History household members: spouse Smoking Status: Never smoker alcohol intake: never substance use type: does not use ROS Constitutional Constitutional: Denies chills, fever(s) or weight gain ENT HEENT: Denies headache(s), nasal congestion or nasal discharge Cardiovascular Cardiovascular: Denies chest pain or palpitations Respiratory/Chest Respiratory/Chest: Denies cough, excessive phlegm production or shortness of breath with exertion Gastrointestinal Gastrointestinal: Denies abdominal pain, nausea or vomiting Genitourinary Genitourinary: Denies dysuria Musculoskeletal Musculoskeletal: Denies joint pain or joint swelling Integumentary Integumentary: Denies rash or wounds Neurologic Neurologic: Denies focal weakness, numbness or tingling Psychiatric Psychiatric: Denies anxiety, auditory hallucinations, depression, homicidal ideation or suicidal ideation Vital Signs Vital Signs Vital Signs: 03/13/23 14:53 03/13/23 14:53 Temperature 97.4 F L Temperature Source Oral Pulse Rate 78 Pulse Rhythm Irregular Pulse Strength Normal (2+) Respiratory Rate 15 16 Respiratory Effort Normal Non-Labored Respiratory Depth Normal Respiratory Pattern Normal Blood Pressure 113/62 Blood Pressure Mean 79 Blood Pressure Source Monitor Blood Pressure Position Semi-Fowlers Blood Pressure Location Left Arm Pulse Ox 91 Oxygen Delivery Method Room Air Room Air Weight Weight: 102.013 kg Body Mass Index (BMI) 26.5 Physical Exam Const alert General Appearance: cooperative HEENT normocephalic Eyes PERRL and EOMs intact bilaterally Neck supple, no JVD and no carotid bruits Neck Narrative: C-collar. Resp normal respiratory effort, normal air movement and clear to auscultation bilaterally Cardio regular rate and regular rhythm GI normal to inspection, nondistended, normoactive bowel sounds, non-tender and non-distended Extremity normal capillary refill General Extremity: Negative for edema Skin no rashes or lesions noted General Skin Exam: no breakdown Neuro Neuro Narrative: Right sided hemiparesis. Psych affect normal Appearance: appropriate Results Lab / Micro Data Labs: Laboratory Results - last 24 hr 03/13/23 16:29: POC Glucose 117 H Micro: Microbiology 03/13/23 15:45 Nasal Secretion SARS-CoV-2 Antigen (Rapid) - Final Assessment & Plan Assessment/Plan (1) Debility: (2) Cervical spinal stenosis: (3) Cervical myelopathy: (4) Right sided weakness: (5) Cardiac arrest: (6) DKA (diabetic ketoacidosis): (7) Acalculous cholecystitis: (8) Diabetes mellitus: (9) Hypertension: (10) Hyperlipidemia: (11) Atrial fibrillation: (12) COPD (chronic obstructive pulmonary disease): (13) Panic disorder: PLAN: Plan 77 year old male with below past medical history significant for recent cervical spinal fusion (C3-C4) for progressive cervical myelopathy, quadriplegia, hospitalized for cardiac arrest, euglycemic diabetic ketoacidosis, acalculous cholecystitis, admitted to TCU with debility, here for rehabilitation, strengthening, prior to discharge home with . Debility - PT/OT. Cognition - ST. Pain - Tylenol 1000mg q6h prn pain (1-10). Bowel - Senna/colace 1 tablet bid, MOM 30ml po x 1 prn. Adult immunization - Administer pneumonia vaccine, covid19 vaccine, flu vaccine as appropriate. DVT prophylaxis - already on Xarelto. Atrial fibrillation - Metoprolol succinate 100mg daily, Diltiazem CD 180mg daily, Xarelto 20mg daily. COPD - Advair 232-14 1 puff bid. Nutrition - Glucerna Shake 120ml tidcm. Diabetes Mellitus II - Metformin 1000mg daily, Glargine 15 units sc daily. Hypertension - Metoprolol succinate 100mg daily, Diltiazem CD 180mg daily, Lisinopril 20mg daily. Insomnia - Melatonin 10mg qhs. 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 Muscle spasm - Tizanidine 4mg q8h prn.
[2023-03-13] MEDS: tiZANidine HCl 2 MG Tablet 4 MG PO (20:03)
[2023-03-13] MEDS: QUEtiapine 25 MG Tablet PO (20:03)
[2023-03-13] MEDS: MELATONIN 10 MG TABLET PO (20:03)
[2023-03-13] MEDS: Acetaminophen 500 MG Tablet 1000 MG PO (22:30)
--- NOTE | 2023-03-14 01:45 | NURSING ---
Pt anxious during care and if he will improve during his stay. This nurse explained procedures completed and rationale for stay on this unit. C-collar in use. Emotional support and active listening provided. Call light w/ in reach. Will continue to monitor.
[2023-03-14 02:36] LABS: Bedside Glucose 183 mg/dL (74-106)
[2023-03-14 06:04] LABS: Absolute Lymphocyte Count 0.96 X10^3/uL (0.83-4.51); Absolute Neutrophil Count 5.3 X10^3/uL (2.0-7.7); Basophil# 0.09 X10^3/uL; Basophil% 1.3 % (0-1); Eosinophil# 0.13 X10^3/uL; Eosinophils% 1.8 % (0-5); Hematocrit 39.4 % (40-54); Hemoglobin 12.5 g/dL (13.0-16.5); Lymphocyte # 0.96 X10^3/ul (0.83-4.51); Lymphocyte % 13.4 % (19-41); Mean Corp Hgb Conc 31.7 g/dL (32-36); Mean Corpuscular Hgb 29.4 pg (27.0-32.0); Mean Corpuscular Volume 92.7 fL (80-94); Monocyte% 8.4 % (0-10); NRBC Flagged by Analyzer 0 % (0-5); Neutrophil # 5.31 X10^3/uL (2.7-7.7); Neutrophil % 74.3 % (47-70); Platelet Count 244 K/mm3 (150-450); RBC Distribution Width CV 13.2 % (11.6-14.6); RBC Distribution Width SD 44.3 fl (35.1-43.9); Red Blood Count 4.25 M/mm3 (4.6-6.2); White Blood Count 7.2 K/mm3 (4.4-11.0)
[2023-03-14] MEDS: Fluticasone/Salmeterol 232-14 Inhaler 1 PUFF INHALATION ×2 (06:17→17:49)
[2023-03-14] MEDS: Insulin Glargine-YFGN 100 UNIT/ML Pen 15 UNIT SC (06:19)
[2023-03-14 06:20] VITALS: BP 127/62; PULSE 80
[2023-03-14] MEDS: Metoprolol(XL)Succ 100 MG Tablet PO (06:20)
[2023-03-14] MEDS: Lisinopril 20 MG Tablet PO (06:20)
[2023-03-14] MEDS: dilTIAZem CD 180 MG Capsule PO (06:21)
[2023-03-14] MEDS: tiZANidine HCl 2 MG Tablet 4 MG PO ×2 (06:22→20:51)
[2023-03-14] MEDS: Senna/Docusate Sodium 1 Tablet PO ×2 (06:24→17:50)
[2023-03-14 06:35] LABS: Bedside Glucose 188 mg/dL (74-106)
[2023-03-14 06:49] LABS: Anion Gap 7 (5-15); BUN 26 mg/dL (7-18); BUN/Creat Ratio 32.2 RATIO (10-20); Calcium,Total 8.9 mg/dL (8.5-10.1); Chloride 106 mmol/L (98-107); Creatinine, Serum 0.81 mg/dL (0.70-1.30); EST Glomerular Filtration Rate 99 mL/min (>60); Est Glom Filt Rate - Afr Amer 120 mL/min (>60); Estimated Creatinine Clearance 99.31 ml/min; Glucose 205 mg/dL (74-106); Potassium 4.1 mmol/L (3.5-5.1); Sodium Level 139 mmol/L (136-145)
[2023-03-14] MEDS: Glucerna Shake 120 ML LIQUID PO (08:22)
[2023-03-14] MEDS: metFORMIN HCl 1,000 MG Tablet 1000 MG PO (08:22)
[2023-03-14] MEDS: Magnesium Hydroxide 30 ML UDC PO (08:39)
[2023-03-14 08:52] VITALS: PULSE 82; RESP 18; O2SAT 96
[2023-03-14] MEDS: Tuberculin,Purif.prot.deriv. 50 TU/ML Vial 0.1 ML ID (10:29)
--- NOTE | 2023-03-14 12:58 | NURSING ---
Bankman Note; Activity Asset: Kristopher Ko is independent in his choice of daily activities. He prefers to be called FW. FW is a huge [employer] fan and enjoys [employer], he is a alumni from there. Favorite food is chocolate! will visit daily along with friends. He was given the [employer] schedule and tv channels.
[2023-03-14 13:39] VITALS: BP 100/54; PULSE 82; RESP 16; TEMP 36.1; O2SAT 97
[2023-03-14 15:06] LABS: Bedside Glucose 258 mg/dL (74-106)
[2023-03-14] MEDS: Rivaroxaban 20 MG Tablet PO (17:49)
[2023-03-14] MEDS: MELATONIN 10 MG TABLET PO (20:51)
[2023-03-14] MEDS: QUEtiapine 25 MG Tablet PO (20:51)
[2023-03-14] MEDS: Acetaminophen 500 MG Tablet 1000 MG PO (20:56)
[2023-03-14 22:00] LABS: Bedside Glucose 161 mg/dL (74-106)
[2023-03-14 22:16] LABS: Bedside Glucose 160 mg/dL (74-106)
[2023-03-15 06:15] VITALS: BP 113/58; PULSE 67
[2023-03-15] MEDS: dilTIAZem CD 180 MG Capsule PO (06:15)
[2023-03-15] MEDS: Metoprolol(XL)Succ 100 MG Tablet PO (06:15)
[2023-03-15] MEDS: Lisinopril 20 MG Tablet PO (06:15)
[2023-03-15] MEDS: Insulin Glargine-YFGN 100 UNIT/ML Pen 15 UNIT SC (06:16)
[2023-03-15] MEDS: Senna/Docusate Sodium 1 Tablet PO ×2 (06:21→17:26)
[2023-03-15 06:41] LABS: Bedside Glucose 141 mg/dL (74-106)
[2023-03-15] MEDS: Fluticasone/Salmeterol 232-14 Inhaler 1 PUFF INHALATION ×2 (08:35→17:26)
[2023-03-15] MEDS: Glucerna Shake 120 ML LIQUID PO ×2 (08:35→17:26)
[2023-03-15] MEDS: PARoxetine 10 MG Tablet PO (08:35)
[2023-03-15] MEDS: metFORMIN HCl 1,000 MG Tablet 1000 MG PO (08:36)
--- NOTE | 2023-03-15 12:06 | NURSING ---
Neurosurgeon Dr. Rosario's office contacted regarding F/U appt and whether patient was able to shower with C-collar. F/U appt scheduled and office request cervical x-ray completed before appt and for patient to bring films to appt. Also report patient is able to take shower and is okay to remove collar for showers.
--- NOTE | 2023-03-15 15:38 | CHAPLAIN ---
Type of Pastoral Visit _x__ Initial Visit ___ Follow-up Visit ___ On-call Visit ___ General Patient Visit ___ Spiritual Assessment ___ Family Conference ___ Bereavement ___ Rapid Response ___ Code Blue ___ Other (describe below) Pastoral Care Referral From _x__ Patient ___ Family ___ Nurse ___ Physician ___ Asphalt Mixer ___ Funeral Driver ___ Other (describe below) Sacrament/Intervention _x__ Active listening ___ Anointing ___ Worship ___ Bereavement ___ Communion _x__ [place] exploration ___ _x__ Life review ___ Prayer ___ Reconciliation ___ Sacrament of Sick _x__ Supportive presence ___ Wedding ___ Other (describe below) Pastoral Comments patient sees this corporate counselor in hallway and calls for the same; pt had requested a visit of support; pt asks this corporate counselor to sit down and spouse promptly leaves the room; pt did not want spouse to leave but she said she must; pt reports at beginning I am not a quaker person, but I need someone to talk to and stay with me; pt asks permission to tell his life story and proceeds to give lots of information about his early years, choices made, family, and a 50 year absence from the rastafarian of his heritage; pt asks this corporate counselor to talk, tell me something, just stay with me; pt also acknowledges that he is filled with fear, just since this happened to me; pt says can you take away my fears; pt again emphasizes that he is not quaker; corporate counselor promises to stay with him for a little bit longer but then will need to leave; this corporate counselor gives reassurance of good people and good place where we do everything we can to help you; promise to return next week to visit was given to patient; pt accepts this and states appreciation for staying with me;
[2023-03-15 15:56] VITALS: BP 102/59; PULSE 68; RESP 16; TEMP 35.7; O2SAT 95
--- NOTE | 2023-03-15 16:47 | CASEMGMT ---
Social Work Met with patient and at bedside to complete initial assessment. Introduced self and role. Verified contacts. Discussed code status and MOLST form. Pt confirms full code. MOLST placed in Dr folder. Educated to [facility] insurance with NRD 03/19 and continued stay is not guaranteed with each review. Pt's goal is to return home with and family assistance. SW to continue to follow for DC planning and support. Kyleigh Gutierrez, ELECTRICIAN SUBSTATION SUPERVISOR COMMUNICATION CLERK
[2023-03-15] MEDS: Rivaroxaban 20 MG Tablet PO (17:26)
[2023-03-15] MEDS: MELATONIN 10 MG TABLET PO (21:41)
[2023-03-15] MEDS: QUEtiapine 25 MG Tablet PO (21:41)
[2023-03-15] MEDS: tiZANidine HCl 2 MG Tablet 4 MG PO (21:41)
[2023-03-15] MEDS: Acetaminophen 500 MG Tablet 1000 MG PO (21:46)
[2023-03-16] MEDS: Acetaminophen 500 MG Tablet 1000 MG PO ×3 (05:44→19:35)
[2023-03-16 05:45] VITALS: BP 117/54; PULSE 62
[2023-03-16] MEDS: dilTIAZem CD 180 MG Capsule PO (05:45)
[2023-03-16] MEDS: PARoxetine 10 MG Tablet PO (05:45)
[2023-03-16] MEDS: Fluticasone/Salmeterol 232-14 Inhaler 1 PUFF INHALATION ×2 (05:45→17:16)
[2023-03-16] MEDS: Metoprolol(XL)Succ 100 MG Tablet PO (05:45)
[2023-03-16] MEDS: Senna/Docusate Sodium 1 Tablet PO ×2 (05:45→17:16)
[2023-03-16] MEDS: Lisinopril 20 MG Tablet PO (05:45)
[2023-03-16] MEDS: Insulin Glargine-YFGN 100 UNIT/ML Pen 15 UNIT SC (05:53)
[2023-03-16 06:35] LABS: Bedside Glucose 145 mg/dL (74-106)
[2023-03-16] MEDS: metFORMIN HCl 1,000 MG Tablet 1000 MG PO (07:59)
[2023-03-16 16:00] VITALS: BP 103/55; PULSE 67; RESP 16; TEMP 35.9; O2SAT 98
[2023-03-16] MEDS: Rivaroxaban 20 MG Tablet PO (17:15)
[2023-03-16] MEDS: Glucerna Shake 120 ML LIQUID PO (17:16)
[2023-03-16] MEDS: tiZANidine HCl 2 MG Tablet 4 MG PO (19:35)
[2023-03-16] MEDS: MELATONIN 10 MG TABLET PO (21:53)
[2023-03-16] MEDS: QUEtiapine 25 MG Tablet PO (21:53)
[2023-03-16 23:00] VITALS: PULSE 82; RESP 18; O2SAT 95
[2023-03-17] MEDS: ALPRAZolam 0.25 MG Tablet PO ×2 (01:41→20:02)
--- NOTE | 2023-03-17 02:02 | NURSING ---
Pt used call light and stated he had a nightmare. This nurse reoriented him to environment. Pt understands he is at [facility]. Pt used urinal at this time and had a snack. Pt continued to repeatedly stating I'm scared, I had a nightmare, I am afraid of becoming scared. Comfort provided, PRN Xanax administered, repositioned in bed, and gave an extra blanket. Note left for Dr. Archibald.
[2023-03-17 06:37] VITALS: BP 130/67; PULSE 80
[2023-03-17] MEDS: dilTIAZem CD 180 MG Capsule PO (06:37)
[2023-03-17] MEDS: Metoprolol(XL)Succ 100 MG Tablet PO (06:37)
[2023-03-17] MEDS: Lisinopril 20 MG Tablet PO (06:38)
[2023-03-17] MEDS: Insulin Glargine-YFGN 100 UNIT/ML Pen 15 UNIT SC (06:38)
[2023-03-17] MEDS: PARoxetine 10 MG Tablet PO (06:38)
[2023-03-17] MEDS: Fluticasone/Salmeterol 232-14 Inhaler 1 PUFF INHALATION ×2 (06:38→17:17)
[2023-03-17] MEDS: Senna/Docusate Sodium 1 Tablet PO ×2 (06:38→17:17)
[2023-03-17 06:50] LABS: Bedside Glucose 164 mg/dL (74-106)
[2023-03-17] MEDS: metFORMIN HCl 1,000 MG Tablet 1000 MG PO (07:54)
[2023-03-17] MEDS: Glucerna Shake 120 ML LIQUID PO (07:59)
[2023-03-17 16:00] VITALS: BP 111/62; PULSE 70; RESP 18; TEMP 36; O2SAT 97
[2023-03-17] MEDS: Rivaroxaban 20 MG Tablet PO (17:17)
[2023-03-17] MEDS: Acetaminophen 500 MG Tablet 1000 MG PO (18:37)
[2023-03-17] MEDS: MELATONIN 10 MG TABLET PO (20:03)
[2023-03-17] MEDS: QUEtiapine 25 MG Tablet PO (20:03)
--- NOTE | 2023-03-18 06:42 | NURSING ---
Attempted to administer am meds and pt states, I would like to wait until about 9 o'clock. Water pitcher refilled, no ice per pt request. Will report to oncoming nurse.
--- NOTE | 2023-03-18 08:00 | RAD_ITS ---
STUDY: X-RAY - CERVICAL SPINE REASON FOR EXAM: Male, 77 years old. Cervical spine fusion TECHNIQUE: 2 view(s) of the cervical spine were obtained. COMPARISON: 08/28/2022 FINDINGS: Normal anterior atlantoaxial articulation. Normal odontoid process. Interval posterior decompression and transpedicular fixation at C3/C4 with anatomic alignment. There is multi-level endplate spondylosis. There is multi-level degenerative disc disease with multilevel disc space narrowing. Normal visualized intervertebral neuroforamina. The soft tissue structures are unremarkable. RAD/Cerv Spine 2 or 3 Views IMPRESSION: Interval posterior decompression and transpedicular fixation at C3/C4 with anatomic alignment. Electronically Signed: Clemente Augustine MD at 19:19 EDT ,
[2023-03-18 08:16] LABS: Bedside Glucose 119 mg/dL (74-106)
[2023-03-18] MEDS: metFORMIN HCl 1,000 MG Tablet 1000 MG PO (08:34)
[2023-03-18] MEDS: Glucerna Shake 120 ML LIQUID PO (08:34)
[2023-03-18 08:35] VITALS: BP 140/67; PULSE 69
[2023-03-18] MEDS: PARoxetine 10 MG Tablet PO (08:35)
[2023-03-18] MEDS: Senna/Docusate Sodium 1 Tablet PO ×2 (08:35→17:21)
[2023-03-18] MEDS: Insulin Glargine-YFGN 100 UNIT/ML Pen 15 UNIT SC (08:35)
[2023-03-18] MEDS: Lisinopril 20 MG Tablet PO (08:35)
[2023-03-18] MEDS: Fluticasone/Salmeterol 232-14 Inhaler 1 PUFF INHALATION ×2 (08:35→17:21)
[2023-03-18] MEDS: Metoprolol(XL)Succ 100 MG Tablet PO (08:35)
[2023-03-18] MEDS: dilTIAZem CD 180 MG Capsule PO (08:35)
[2023-03-18 08:43] VITALS: BP 140/67; PULSE 69
--- NOTE | 2023-03-18 10:45 | PCA ---
Went into 's room @ 10:35, he needed to use the urinal, but said he was probably already wet. I gave him the urinal & changed him. He asked me to call his for him, I called his & gave him the phone. FW talked to his & got off the phone. He told me that his said to get up @ lunch time. I told him we would be in @ 11:30. because our trays come @ 11:45. I told him we can not do what we did yesterday with being back & forth during meals. He said don't scold me. I said I am not scolding you, i'm just saying we can not do this @ meal time. He said i'm not a child. I said, no you are not a child & left the room.
[2023-03-18] MEDS: Acetaminophen 500 MG Tablet 1000 MG PO ×2 (12:38→18:55)
[2023-03-18] MEDS: tiZANidine HCl 2 MG Tablet 4 MG PO (13:58)
[2023-03-18 14:52] VITALS: BP 117/60; PULSE 83; RESP 16; TEMP 37; O2SAT 99
[2023-03-18] MEDS: Rivaroxaban 20 MG Tablet PO (17:21)
[2023-03-18] MEDS: ALPRAZolam 0.25 MG Tablet PO (17:21)
[2023-03-18] MEDS: MELATONIN 10 MG TABLET PO (21:30)
[2023-03-18] MEDS: QUEtiapine 25 MG Tablet PO (21:30)
[2023-03-18 21:44] VITALS: O2SAT 96
[2023-03-19 06:12] VITALS: BP 110/62; PULSE 65
[2023-03-19] MEDS: Metoprolol(XL)Succ 100 MG Tablet PO (06:12)
[2023-03-19] MEDS: Fluticasone/Salmeterol 232-14 Inhaler 1 PUFF INHALATION ×2 (06:12→17:36)
[2023-03-19] MEDS: dilTIAZem CD 180 MG Capsule PO (06:13)
[2023-03-19] MEDS: PARoxetine 10 MG Tablet PO (06:13)
[2023-03-19] MEDS: Senna/Docusate Sodium 1 Tablet PO (06:13)
[2023-03-19] MEDS: Lisinopril 20 MG Tablet PO (06:13)
[2023-03-19] MEDS: Insulin Glargine-YFGN 100 UNIT/ML Pen 15 UNIT SC (06:15)
[2023-03-19 06:40] LABS: Bedside Glucose 186 mg/dL (74-106)
[2023-03-19] MEDS: metFORMIN HCl 1,000 MG Tablet 1000 MG PO (07:45)
[2023-03-19] MEDS: Glucerna Shake 120 ML LIQUID PO ×3 (07:45→17:37)
--- NOTE | 2023-03-19 08:58 | NURSING ---
Dr. Contreras office contacted regarding consult. Office reports only sees patients as outpatient. Will need appt set up after discharge.
[2023-03-19] MEDS: Acetaminophen 500 MG Tablet 1000 MG PO ×2 (09:14→21:33)
[2023-03-19] MEDS: ALPRAZolam 0.25 MG Tablet PO (09:26)
--- NOTE | 2023-03-19 10:04 | CASEMGMT ---
Social Work BIMS (10/26) and PHQ-9 (07/08) completed for MDS assessment. Pt contributes positive responses to reason for admission but states I have nothing but enthusiasm for improvement. Pt was started on anti-anxiety medication at beginning on TCU stay. SW provided emotional support and offered ongoing supportive visits. FRED MaloneW
[2023-03-19] MEDS: Magnesium Hydroxide 30 ML UDC PO (13:54)
--- NOTE | 2023-03-19 14:21 | NURSING ---
Return from f/u with neurosurgeon. NO to remove cervical collar except with PT and walking in hallway/bathroom. F/U in 6 weeks. To receive cervical x-rays before appt.
[2023-03-19 14:51] VITALS: BP 124/59; PULSE 74; RESP 16; TEMP 36.3; O2SAT 97
--- NOTE | 2023-03-19 15:22 | PCM.PN.DRR ---
TCU RX Drug Regimen Review Subjective: TCU Admission. 77 YOM with recent cervical spinal fusion (C3-C4) for progressive cervical myelopathy, quadriplegia, hospitalized for cardiac arrest, euglycemic diabetic ketoacidosis, acalculous cholecystitis. Admitted to TCU with debility for strengthening and rehabilitation. Objective: Allergies Penicillins Allergy (Severe, Verified 09/23/22 04:44) u lorazepam [From Ativan] Adverse Reaction (Severe, Verified 09/23/22 04:44) caused him to have nightmares and see monsters Current Medications Generic Name Dose Route Start Last Admin Trade Name Freq PRN Reason Stop Dose Admin Acetaminophen 1,000 mg 03/13/23 19:55 03/19/23 09:14 Acetaminophen 500 Mg Tablet PO 1,000 mg Q6H PRN PRN Administration Pain Score 1-10 Alprazolam 0.25 mg 03/16/23 14:38 03/19/23 09:26 Alprazolam 0.25 Mg Tablet PO 0.25 mg TID PRN PRN Administration ANXIETY/RESTLESSNESS/SLEEP Diltiazem HCl 180 mg 03/14/23 06:00 03/19/23 06:13 Diltiazem Cd 180 Mg Capsule PO 180 mg DAILY PRIYA Administration Insulin Glargine 15 unit 03/14/23 06:00 03/19/23 06:15 Insulin Glargine-Yfgn 100 Unit/Ml Pen SC 15 unit DAILY PRIYA Administration Lisinopril 20 mg 03/14/23 06:00 03/19/23 06:13 Lisinopril 20 Mg Tablet PO 20 mg DAILY PRIYA Administration Magnesium Hydroxide 30 ml 03/13/23 19:54 03/19/23 13:54 Magnesium Hydroxide 30 Ml Udc PO 30 ml X1 PRN Administration CONSTIPATION Melatonin 10 mg 03/13/23 22:00 03/18/23 21:30 Melatonin 10 Mg Tablet PO 10 mg QHS PRIYA Administration Metformin HCl 1,000 mg 03/14/23 08:00 03/19/23 07:45 Metformin Hcl 1,000 Mg Tablet PO 1,000 mg DAILYCM PRIYA Administration Metoprolol Succinate 100 mg 03/14/23 06:00 03/19/23 06:12 Metoprolol(Xl)Succ 100 Mg Tablet PO 100 mg DAILY PRIYA Administration Nutritional Formula (Lactose Free) 120 ml 03/13/23 17:45 03/19/23 15:02 Glucerna Shake 120 Ml Liquid PO 120 ml TIDCM PRIYA Administration Paroxetine HCl 10 mg 03/15/23 06:00 03/19/23 06:13 Paroxetine 10 Mg Tablet PO 10 mg DAILY PRIYA Administration Quetiapine Fumarate 25 mg 03/13/23 22:00 03/18/23 21:30 Quetiapine 25 Mg Tablet PO 25 mg QHS PRIYA Administration Rivaroxaban 20 mg 03/13/23 17:00 03/18/23 17:21 Rivaroxaban 20 Mg Tablet PO 20 mg DINNER PRIYA Administration Fluticasone/Salmeterol 1 puff 03/13/23 18:00 03/19/23 06:12 Fluticasone/Salmeterol 232-14 Inhaler INHALATION 1 puff BID PRIYA Administration Senna/Docusate Sodium 1 tablet 03/14/23 06:00 03/19/23 06:13 Senna/Docusate Sodium 1 Tablet PO 1 tablet BID PRIYA Administration Sodium Chloride 10 - 40 ml 03/15/23 11:05 0.9% Saline Lock 10 Ml Syringe IV UD PRN SALINE FLUSH Tizanidine HCl 4 mg 03/13/23 15:19 03/18/23 13:58 Tizanidine Hcl 2 Mg Tablet PO 4 mg Q8H PRN Administration muscle relaxer Tuberculin PPD 0.1 ml 03/21/23 10:00 Tuberculin,Purif.Prot.Deriv. 50 Tu/Ml Vial ID 03/21/23 10:01 X1 ONE Problem List (Last Reviewed 03/13/23 @ 19:[address] Segundo Archibald MD) Panic disorder (Acute) COPD (chronic obstructive pulmonary disease) (Chronic) Atrial fibrillation (Acute) Hyperlipidemia (Acute) Hypertension (Chronic) Diabetes mellitus (Acute) Acalculous cholecystitis (Acute) DKA (diabetic ketoacidosis) (Acute) Cardiac arrest (Acute) Right sided weakness (Acute) Cervical myelopathy (Acute) Cervical spinal stenosis (Acute) Debility (Acute) Vital Signs Temp Pulse Resp BP Pulse Ox O2 Del Method 97.3 F L 74 16 124/59 H 97 Room Air 03/19/23 14:51 03/19/23 14:51 03/19/23 14:51 03/19/23 14:51 03/19/23 14:51 03/19/23 14:51 Oxygen Delivery Method Room Air Weight: 102.013 kg Body Mass Index (BMI) 26.5 Sodium 139 mmol/L (136-145) 03/14/23 05:36 Potassium 4.1 mmol/L (3.5-5.1) 03/14/23 05:36 Chloride 106 mmol/L (98-107) 03/14/23 05:36 Carbon Dioxide 26.0 mmol/L (21.0-32.0) 03/14/23 05:36 Anion Gap 7 (5-15) 03/14/23 05:36 BUN 26 mg/dL (7-18) H 03/14/23 05:36 Creatinine 0.81 mg/dL (0.70-1.30) 03/14/23 05:36 Est GFR (MDRD) Af Amer 120 mL/min (>60) 03/14/23 05:36 Est GFR (MDRD) Non-Af 99 mL/min (>60) 03/14/23 05:36 BUN/Creatinine Ratio 32.2 RATIO (10-20) H 03/14/23 05:36 Glucose 205 mg/dL (74-106) H 03/14/23 05:36 Assessment/Plan: 1. Pain: acetaminophen 1000mg PO Q6H PRN pain 1-10. Resident has had 10 doses for pain scores of 4-8 in the neck/back. Please continue to monitor for increased pain and PRN usage. 2. Bowel: senna/docusate 1T PO BID and MOM 30mL PO x1 PRN constipation. Resident has had 2 doses of MOM. Last documented bowel movement 03/14/23. Please continue to monitor for constipation and PRN usage. 3. Atrial fibrillation/hypertension: metoprolol succinate 100mg PO daily, lisinopril 20mg PO daily, diltiazem CD 180mg PO daily and rivaroxaban 20mg PO dinner. Please continue to monitor HR (last 74), BP (last 124/59), S/S of bleeding, hemoglobin (last 12.5g/dL), renal function, potassium (last 4.1mmol/L), cough. 4. Diabetes mellitus II: metformin 1000mg PO daily and insulin glargine 15units SC daily. Please continue to monitor for S/S of hypoglycemia, renal function (eGFR >60mL/min), diarrhea, hemoglobin A1c (last 9.2% 02/02/23) and glucose (last 186 mg/dL). 5. COPD: fluticasone/salmeterol 232/14mcg 1inhalation BID. Please continue to monitor for S/S of COPD, HR, thrush. Please rinse mouth with water and spit following administration to prevent thrush. 6. Insomnia: melatonin 10mg PO QHS. Please continue to monitor for excessive drowsiness. 7. Muscle spasm: tizanidine 4mg PO Q8H PRN muscle relaxer. Resident has had 6 doses of tizanidine. Please continue to monitor for muscle spasms and PRN usage. Assessment/Plan for indications treated with psychotropic medications: 1. 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 Please see physician note regarding GDR. Please continue to monitor for S/S of stroke (BEERs medication), dementia/delirium (black box warning, BEERs medication), falls/factures (BEERs medication), sodium (last 139mmol/L), weight gain, lipids. 2. Anxiety/sleep/restlessness: paroxetine 10mg PO daily and alprazolam 0.25mg PO TID PRN anxiety. 4 doses of alprazolam given. Medication just added, GDR not appropriate at this time. Please continue to monitor for S/S of anxiety, falls/fractures (BEERs medication), sodium, delirium/dementia (BEERs medication), decreased urinary flow (BEERs medication), and anticholinergic side effects (BEERs medication). Medical chart and medication regimen reviewed. The following medication irregularities or issues were identified: None Date of Note:: 03/19/23
[2023-03-19] MEDS: Rivaroxaban 20 MG Tablet PO (17:37)
[2023-03-19] MEDS: MELATONIN 10 MG TABLET PO (21:33)
[2023-03-19] MEDS: QUEtiapine 25 MG Tablet PO (21:33)
[2023-03-20 06:34] VITALS: BP 128/67; PULSE 70
[2023-03-20] MEDS: PARoxetine 10 MG Tablet PO (06:34)
[2023-03-20] MEDS: Metoprolol(XL)Succ 100 MG Tablet PO (06:34)
[2023-03-20] MEDS: Lisinopril 20 MG Tablet PO (06:34)
[2023-03-20] MEDS: Senna/Docusate Sodium 1 Tablet PO ×2 (06:34→17:38)
[2023-03-20 06:35] LABS: Bedside Glucose 117 mg/dL (74-106)
[2023-03-20] MEDS: tiZANidine HCl 2 MG Tablet 4 MG PO ×2 (06:35→21:58)
[2023-03-20] MEDS: dilTIAZem CD 180 MG Capsule PO (06:35)
[2023-03-20] MEDS: Acetaminophen 500 MG Tablet 1000 MG PO ×3 (06:39→22:02)
[2023-03-20] MEDS: Insulin Glargine-YFGN 100 UNIT/ML Pen 15 UNIT SC (06:42)
[2023-03-20] MEDS: Fluticasone/Salmeterol 232-14 Inhaler 1 PUFF INHALATION ×2 (06:43→17:38)
[2023-03-20] MEDS: ALPRAZolam 0.25 MG Tablet PO (07:59)
[2023-03-20] MEDS: Glucerna Shake 120 ML LIQUID PO (07:59)
[2023-03-20] MEDS: metFORMIN HCl 1,000 MG Tablet 1000 MG PO (08:00)
[2023-03-20 10:34] VITALS: BMI 25.4
[2023-03-20 13:44] VITALS: BP 116/61; PULSE 56; RESP 16; TEMP 36.2; O2SAT 97
[2023-03-20] MEDS: Rivaroxaban 20 MG Tablet PO (17:37)
[2023-03-20] MEDS: QUEtiapine 25 MG Tablet PO (21:57)
[2023-03-20] MEDS: MELATONIN 10 MG TABLET PO (21:57)
[2023-03-20 22:00] VITALS: PULSE 98; RESP 16; O2SAT 98
[2023-03-21 05:51] LABS: Absolute Neutrophil Count 2.7 X10^3/uL (2.0-7.7); Basophil# 0.04 X10^3/uL; Basophil% 0.9 % (0-1); Eosinophil# 0.18 X10^3/uL; Hematocrit 35.7 % (40-54); Hemoglobin 11.6 g/dL (13.0-16.5); Lymphocyte % 26.7 % (19-41); Mean Corp Hgb Conc 32.5 g/dL (32-36); Mean Corpuscular Hgb 29.4 pg (27.0-32.0); Mean Corpuscular Volume 90.6 fL (80-94); Mean Platelet Vol. 8.5 fl (6.2-12.0); Monocyte# 0.35 X10^3/uL; Monocyte% 7.8 % (0-10); NRBC Flagged by Analyzer 0 % (0-5); Neutrophil % 59.9 % (47-70); Platelet Count 195 K/mm3 (150-450); RBC Distribution Width CV 13.1 % (11.6-14.6); RBC Distribution Width SD 43.2 fl (35.1-43.9); Red Blood Count 3.94 M/mm3 (4.6-6.2); White Blood Count 4.5 K/mm3 (4.4-11.0)
[2023-03-21 06:07] VITALS: BP 127/65; PULSE 59
[2023-03-21] MEDS: Lisinopril 20 MG Tablet PO (06:07)
[2023-03-21] MEDS: PARoxetine 10 MG Tablet PO (06:07)
[2023-03-21] MEDS: Senna/Docusate Sodium 1 Tablet PO ×2 (06:07→17:18)
[2023-03-21] MEDS: dilTIAZem CD 180 MG Capsule PO (06:07)
[2023-03-21] MEDS: Metoprolol(XL)Succ 100 MG Tablet PO (06:07)
[2023-03-21] MEDS: Fluticasone/Salmeterol 232-14 Inhaler 1 PUFF INHALATION ×2 (06:07→17:18)
[2023-03-21] MEDS: Insulin Glargine-YFGN 100 UNIT/ML Pen 15 UNIT SC (06:10)
[2023-03-21] MEDS: Acetaminophen 500 MG Tablet 1000 MG PO ×3 (06:10→20:50)
[2023-03-21 06:37] LABS: Anion Gap 6 (5-15); BUN 20 mg/dL (7-18); BUN/Creat Ratio 26.5 RATIO (10-20); Chloride 105 mmol/L (98-107); Creatinine, Serum 0.76 mg/dL (0.70-1.30); EST Glomerular Filtration Rate 107 mL/min (>60); Est Glom Filt Rate - Afr Amer 129 mL/min (>60); Estimated Creatinine Clearance 80.44 ml/min; Glucose 114 mg/dL (74-106); Sodium Level 140 mmol/L (136-145)
[2023-03-21 06:40] LABS: Bedside Glucose 92 mg/dL (74-106)
[2023-03-21] MEDS: metFORMIN HCl 1,000 MG Tablet 1000 MG PO (07:51)
[2023-03-21] MEDS: traMADol 50 MG Tablet PO (09:11)
--- NOTE | 2023-03-21 10:55 | CASEMGMT ---
Addendum entered by Kyleigh Gutierrez 03/21/23 16:21: Precert denied for IRU. Son present in room with pt. SW explained denial and option P2P appeal. Both requested this worker contact . SW contacted and explained. requesting P2P. SW secure messaged Dr. Archibald whom agreed to P2P. SW called provided phone number to schedule P2P, but according to the voicemail, a request must be faxed to [facility] with the member ID and Dr contact information. Faxed request sent. Will continue to follow. Original Note: Social Work IDT met with patient, and son for care plan meeting. Discussed patient's progress in PT/OT/ST/SN. Educated to [facility] insurance with NRD 03/23 and continued stay is not guaranteed with each review. Precert was submitted 03/20 for RU. Will await outcome. Pt needs to be closer to PLOF to return home with . cannot provide any physical assistance, only CGA. SW provided medical alert resources for home. SW to continue to follow for DC planning. Kyleigh Gutierrez, GREENHOUSE STAFF COMMUNICATIONS CLERK
--- NOTE | 2023-03-21 11:00 | PT ---
Pt c/o dizziness with all standing. Pt's BP while sitting was 116/61 and HR was 62 bpm. When standing, BP was 70/43 and HR was 67 bpm. Reported to RN.
[2023-03-21] MEDS: Tuberculin,Purif.prot.deriv. 50 TU/ML Vial 0.1 ML ID (12:45)
[2023-03-21 15:22] VITALS: BP 109/51; PULSE 57; RESP 16; TEMP 36.1; O2SAT 97
[2023-03-21] MEDS: Rivaroxaban 20 MG Tablet PO (17:17)
[2023-03-21] MEDS: 0.9% Normal Saline 1,000 ML 999 ML IV (18:08)
--- NOTE | 2023-03-21 18:53 | NURSING ---
Therapy reported dizzy and BP drop while standing. Dr. Winters made aware and ordered NS bolus. IV started in Left AC and patient tolerated well.
[2023-03-21] MEDS: tiZANidine HCl 2 MG Tablet 4 MG PO (20:49)
[2023-03-21] MEDS: MELATONIN 10 MG TABLET PO (20:50)
[2023-03-21] MEDS: QUEtiapine 25 MG Tablet PO (20:50)
[2023-03-22 06:16] VITALS: BP 135/65; PULSE 64
[2023-03-22] MEDS: PARoxetine 10 MG Tablet PO (06:16)
[2023-03-22] MEDS: Metoprolol(XL)Succ 50 MG Tablet PO (06:16)
[2023-03-22] MEDS: Senna/Docusate Sodium 1 Tablet PO ×2 (06:16→17:23)
[2023-03-22] MEDS: dilTIAZem CD 180 MG Capsule PO (06:17)
[2023-03-22] MEDS: Acetaminophen 500 MG Tablet 1000 MG PO ×3 (06:19→21:29)
[2023-03-22] MEDS: Insulin Glargine-YFGN 100 UNIT/ML Pen 15 UNIT SC (06:23)
[2023-03-22] MEDS: Fluticasone/Salmeterol 232-14 Inhaler 1 PUFF INHALATION ×2 (06:23→17:23)
[2023-03-22 07:45] LABS: Bedside Glucose 140 mg/dL (74-106)
[2023-03-22] MEDS: metFORMIN HCl 1,000 MG Tablet 1000 MG PO (08:41)
[2023-03-22 10:00] VITALS: PULSE 73; RESP 18; O2SAT 99
--- NOTE | 2023-03-22 14:12 | CASEMGMT ---
Social Work Received call back from [facility] appeals Ya negro. Ya explained the P2P does not overturn the denial, it is just a formality. The P2P would also accompany a phone appeal that would be done by a staff member/this worker, not the patient. Ya acknowledged this is abnormal appeal process to other insurance providers. JULISSA explained staff cannot complete an appeal, that is bias and conflict of interest, and does not want to waste the Drs time if that is not a benefit to the patient. Rep expressed understanding. Appeal is not filed. SW contacted and updated on above. expressed understanding and not upset. SW will continue to follow. Insurance NRD 03/23. FRED MaloneW
[2023-03-22 15:14] VITALS: BP 149/67; PULSE 69; RESP 16; TEMP 36.1; O2SAT 97
[2023-03-22] MEDS: Rivaroxaban 20 MG Tablet PO (17:23)
[2023-03-22] MEDS: QUEtiapine 25 MG Tablet PO (21:29)
[2023-03-22] MEDS: MELATONIN 10 MG TABLET PO (21:29)
[2023-03-23] MEDS: Senna/Docusate Sodium 1 Tablet PO ×2 (06:30→16:51)
[2023-03-23] MEDS: dilTIAZem CD 180 MG Capsule PO (06:30)
[2023-03-23] MEDS: PARoxetine 10 MG Tablet PO (06:30)
[2023-03-23 06:31] VITALS: BP 138/70; PULSE 63
[2023-03-23] MEDS: Metoprolol(XL)Succ 50 MG Tablet PO (06:31)
[2023-03-23] MEDS: Fluticasone/Salmeterol 232-14 Inhaler 1 PUFF INHALATION ×2 (06:32→16:52)
[2023-03-23] MEDS: 0.9% Saline Lock 10 ML Syringe IV (06:32)
[2023-03-23 06:35] LABS: Bedside Glucose 96 mg/dL (74-106)
[2023-03-23] MEDS: Acetaminophen 500 MG Tablet 1000 MG PO ×3 (06:35→23:13)
[2023-03-23] MEDS: metFORMIN HCl 1,000 MG Tablet 1000 MG PO (08:55)
[2023-03-23] MEDS: Insulin Glargine-YFGN 100 UNIT/ML Pen 15 UNIT SC (08:55)
[2023-03-23 09:42] VITALS: PULSE 74; RESP 16; O2SAT 98
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
[2023-03-23 14:01] VITALS: BP 130/66; PULSE 61; RESP 16; TEMP 36.3; O2SAT 97
[2023-03-23] MEDS: Rivaroxaban 20 MG Tablet PO (16:51)
[2023-03-23] MEDS: QUEtiapine 25 MG Tablet PO (23:12)
[2023-03-23] MEDS: Mirtazapine 15 MG Tablet 7.5 MG PO (23:12)
[2023-03-24 05:28] VITALS: BP 128/54; PULSE 66
[2023-03-24] MEDS: Fluticasone/Salmeterol 232-14 Inhaler 1 PUFF INHALATION ×2 (06:34→17:33)
[2023-03-24] MEDS: Menthol/Lanolin/Calamine/Znox 113 GM Tube 1 APPLIC TOPICAL ×2 (06:34→17:38)
[2023-03-24 06:35] VITALS: BP 128/54; PULSE 66
[2023-03-24] MEDS: Senna/Docusate Sodium 1 Tablet PO ×2 (06:35→17:33)
[2023-03-24] MEDS: dilTIAZem CD 180 MG Capsule PO (06:35)
[2023-03-24] MEDS: PARoxetine 10 MG Tablet PO (06:35)
[2023-03-24] MEDS: Metoprolol(XL)Succ 50 MG Tablet PO (06:35)
[2023-03-24] MEDS: Acetaminophen 500 MG Tablet 1000 MG PO ×3 (06:37→21:38)
[2023-03-24] MEDS: Insulin Glargine-YFGN 100 UNIT/ML Pen 15 UNIT SC (06:42)
[2023-03-24 07:00] LABS: Bedside Glucose 112 mg/dL (74-106)
[2023-03-24] MEDS: metFORMIN HCl 1,000 MG Tablet 1000 MG PO (09:32)
[2023-03-24 14:32] VITALS: BP 123/64; PULSE 67; RESP 16; TEMP 35.9; O2SAT 98
[2023-03-24] MEDS: Rivaroxaban 20 MG Tablet PO (17:34)
[2023-03-24] MEDS: QUEtiapine 25 MG Tablet PO (21:34)
[2023-03-24] MEDS: Mirtazapine 15 MG Tablet 7.5 MG PO (21:34)
[2023-03-24] MEDS: 0.9% Saline Lock 10 ML Syringe IV (21:51)
[2023-03-24 23:22] VITALS: PULSE 82; RESP 16; O2SAT 97
[2023-03-25] MEDS: Acetaminophen 500 MG Tablet 1000 MG PO ×3 (06:34→21:29)
[2023-03-25 06:35] VITALS: BP 132/69; PULSE 62
[2023-03-25] MEDS: PARoxetine 10 MG Tablet PO (06:35)
[2023-03-25] MEDS: Metoprolol(XL)Succ 50 MG Tablet PO (06:35)
[2023-03-25] MEDS: Fluticasone/Salmeterol 232-14 Inhaler 1 PUFF INHALATION ×2 (06:35→17:15)
[2023-03-25] MEDS: Senna/Docusate Sodium 1 Tablet PO ×2 (06:35→17:15)
[2023-03-25] MEDS: dilTIAZem CD 180 MG Capsule PO (06:35)
[2023-03-25] MEDS: Insulin Glargine-YFGN 100 UNIT/ML Pen 15 UNIT SC (06:36)
[2023-03-25 06:45] LABS: Bedside Glucose 157 mg/dL (74-106)
[2023-03-25] MEDS: metFORMIN HCl 1,000 MG Tablet 1000 MG PO (09:06)
[2023-03-25] MEDS: Menthol/Lanolin/Calamine/Znox 113 GM Tube 1 APPLIC TOPICAL ×2 (09:08→21:31)
[2023-03-25 16:00] VITALS: BP 139/67; PULSE 66; RESP 16; TEMP 36.3
[2023-03-25] MEDS: Rivaroxaban 20 MG Tablet PO (17:14)
[2023-03-25] MEDS: QUEtiapine 25 MG Tablet PO (21:30)
[2023-03-25] MEDS: Mirtazapine 15 MG Tablet 7.5 MG PO (21:30)
[2023-03-26 06:13] VITALS: BP 138/61; PULSE 60
[2023-03-26] MEDS: PARoxetine 10 MG Tablet PO (06:13)
[2023-03-26] MEDS: dilTIAZem CD 180 MG Capsule PO (06:13)
[2023-03-26] MEDS: Metoprolol(XL)Succ 50 MG Tablet PO (06:13)
[2023-03-26] MEDS: Fluticasone/Salmeterol 232-14 Inhaler 1 PUFF INHALATION ×2 (06:14→17:11)
[2023-03-26] MEDS: Insulin Glargine-YFGN 100 UNIT/ML Pen 15 UNIT SC (06:14)
[2023-03-26] MEDS: Senna/Docusate Sodium 1 Tablet PO (06:14)
[2023-03-26] MEDS: Acetaminophen 500 MG Tablet 1000 MG PO ×3 (06:15→21:32)
[2023-03-26] MEDS: 0.9% Saline Lock 10 ML Syringe IV ×2 (06:21→21:34)
[2023-03-26 06:36] LABS: Bedside Glucose 147 mg/dL (74-106)
[2023-03-26] MEDS: metFORMIN HCl 1,000 MG Tablet 1000 MG PO (08:50)
[2023-03-26] MEDS: Menthol/Lanolin/Calamine/Znox 113 GM Tube 1 APPLIC TOPICAL ×2 (08:52→21:33)
--- NOTE | 2023-03-26 10:06 | MDS.RN ---
Information for the mds was obtained from review of the clinical record, interview of resident, staff, and direct observation of resident's care.
--- NOTE | 2023-03-26 13:29 | NURSING ---
Ghazala Beck CNP contacted and number went strait to [facility] and she reports patient has not had PN vaccine that she knew of.
[2023-03-26] MEDS: traMADol 50 MG Tablet PO (14:18)
[2023-03-26 14:24] VITALS: BP 132/66; PULSE 65; RESP 18; TEMP 36.4; O2SAT 98
--- NOTE | 2023-03-26 16:30 | NURSING ---
[facility] contacted per reporting this is where receive vaccines and no history of PN vaccine. Patient then reports he received a PN shot 4-5 years ago at a wellness center, but was unaware of who had given vaccine. Patient agreeable to receive Prevnar 20.
[2023-03-26] MEDS: Magnesium Hydroxide 30 ML UDC PO (17:10)
[2023-03-26] MEDS: Rivaroxaban 20 MG Tablet PO (17:11)
[2023-03-26] MEDS: QUEtiapine 25 MG Tablet PO (21:31)
[2023-03-26] MEDS: Mirtazapine 15 MG Tablet 7.5 MG PO (21:31)
[2023-03-27 05:10] VITALS: BP 149/71; PULSE 66; RESP 20; O2SAT 98
[2023-03-27] MEDS: dilTIAZem CD 180 MG Capsule PO (05:14)
[2023-03-27] MEDS: Fluticasone/Salmeterol 232-14 Inhaler 1 PUFF INHALATION ×2 (05:15→17:32)
[2023-03-27] MEDS: Insulin Glargine-YFGN 100 UNIT/ML Pen 15 UNIT SC (05:16)
[2023-03-27] MEDS: PARoxetine 10 MG Tablet PO (05:16)
[2023-03-27] MEDS: Acetaminophen 500 MG Tablet 1000 MG PO ×3 (05:17→21:43)
[2023-03-27 05:18] VITALS: BP 149/71; PULSE 66
[2023-03-27] MEDS: Metoprolol(XL)Succ 50 MG Tablet PO (05:18)
[2023-03-27 06:21] LABS: Bedside Glucose 169 mg/dL (74-106)
[2023-03-27] MEDS: metFORMIN HCl 1,000 MG Tablet 1000 MG PO (09:15)
[2023-03-27] MEDS: Pneumococcal Vaccine 20 Valent 0.5 ML Syringe IM (09:16)
[2023-03-27] MEDS: Menthol/Lanolin/Calamine/Znox 113 GM Tube 1 APPLIC TOPICAL ×2 (09:17→21:50)
[2023-03-27 09:30] VITALS: BMI 26.5
[2023-03-27] MEDS: ALPRAZolam 0.25 MG Tablet PO (09:30)
[2023-03-27 10:00] VITALS: RESP 18
[2023-03-27] MEDS: traMADol 50 MG Tablet PO (12:46)
--- NOTE | 2023-03-27 13:01 | CASEMGMT ---
Addendum entered by Kyleigh Gutierrez 03/28/23 08:20: Received return voicemail from therapy washing and screening plant supervisor. Microfiche Duplicator explained pt would continue benefiting from PT sessions as scheduled as pt has improvement to make in activity tolerance, balance, stamina, which impacts the ability to complete ADLs. OT will continue focusing on improving independence with ADLs. Therapy to schedule training with all family. SW to continue to follow. Addendum entered by Kyleigh Gutierrez 03/27/23 16:07: presented to this worker's office requesting presence in pt's room with dtr and hired caregiver. SW presented to pt's room, answered questions and discussed DC needs. SW explained pt is progressing but still needing assistance ADLs. confirmed she is not able to assist with current level of care and caregiver will not be hired for 04/06 care. pt would like to wait to see progress in the three more days until DC. SW kindly but realistically stated the level of care will not change enough for DC plan to change. and dtr agreed about inquired about a week or so time. SW agreed the goal and prediction by therapist is to have further improvement in that timeframe. SW offered to follow up with pt/family after IDT Huddle next week (Sunday) to determine progress, DC plans and schedule caregiver and therapy training for home. All parties in agreement. Dtr inquired about more focus on OT tasks, than PT and if dtr and son can walk with pt during visits. SW to follow up with appropriate coworkers to get answers to those questions and report back to . All appreciative. SW requested pay 8 total days of room and board to border guard's office. LCD 03/29 - planned DC 04/06. agreeable. SW left voicemail with therapy washing and screening plant supervisor with questions and information from meeting. Original Note: Social Work Insurance issued LCD 03/29, DC 03/30. SW contacted to update on DC. stated she has a meeting with a ITEM PROCESSOR today to determine if aide can assist pt at home. Pt expresses wishes to return home, but unsure if she can care for his ADL needs. SW provided updated on level of care needed and offered therapy training. unsure, and will talk with pt and dtr today, then notify this worker. SW to continue to follow. Kyleigh Gutierrez, OIL WELL DRILLING MANAGER MICROSTRATEGY ARCHITECT DEVELOPER
--- NOTE | 2023-03-27 13:05 | CHAPLAIN ---
Type of Pastoral Visit ___ Initial Visit _x__ Follow-up Visit ___ On-call Visit ___ General Patient Visit ___ Spiritual Assessment ___ Family Conference ___ Bereavement ___ Rapid Response ___ Code Blue ___ Other (describe below) Pastoral Care Referral From _x__ Patient ___ Family ___ Nurse ___ Physician ___ Talent Acquisition Operations Manager ___ Water Mechanic ___ Other (describe below) Sacrament/Intervention ___ Active listening ___ Anointing ___ Lutheran ___ Bereavement ___ Communion ___ [place] exploration ___ ___ Life review ___ Prayer ___ Reconciliation ___ Sacrament of Sick _x__ Supportive presence ___ Wedding ___ Other (describe below) Pastoral Comments patient is eating lunch; offer of support to follow up previous visits given; pt states that he wants to eat, which is hard and slow for him, before he has therapy; pt states that he is feeling some better; pt declines visit at this time so he can focus on eating
[2023-03-27 16:00] VITALS: BP 149/77; PULSE 70; RESP 19; TEMP 37.1; O2SAT 93
[2023-03-27] MEDS: Rivaroxaban 20 MG Tablet PO (17:32)
[2023-03-27] MEDS: Senna/Docusate Sodium 1 Tablet PO (17:32)
[2023-03-27] MEDS: QUEtiapine 25 MG Tablet PO (21:42)
[2023-03-27] MEDS: Mirtazapine 15 MG Tablet 7.5 MG PO (21:42)
[2023-03-27] MEDS: ALPRAZolam 0.5 MG Tablet PO (21:44)
[2023-03-28 06:04] LABS: Absolute Lymphocyte Count 1.18 X10^3/uL (0.83-4.51); Absolute Neutrophil Count 2.6 X10^3/uL (2.0-7.7); Basophil# 0.03 X10^3/uL; Basophil% 0.7 % (0-1); Eosinophil# 0.16 X10^3/uL; Eosinophils% 3.6 % (0-5); Hematocrit 36.8 % (40-54); Hemoglobin 11.6 g/dL (13.0-16.5); Lymphocyte # 1.18 X10^3/ul (0.83-4.51); Lymphocyte % 26.6 % (19-41); Mean Corp Hgb Conc 31.5 g/dL (32-36); Mean Corpuscular Hgb 29.2 pg (27.0-32.0); Mean Corpuscular Volume 92.7 fL (80-94); Mean Platelet Vol. 8.6 fl (6.2-12.0); Monocyte# 0.47 X10^3/uL; Monocyte% 10.6 % (0-10); NRBC Flagged by Analyzer 0 % (0-5); Neutrophil # 2.57 X10^3/uL (2.7-7.7); Neutrophil % 57.8 % (47-70); Platelet Count 148 K/mm3 (150-450); RBC Distribution Width CV 13.4 % (11.6-14.6); RBC Distribution Width SD 45.3 fl (35.1-43.9); Red Blood Count 3.97 M/mm3 (4.6-6.2); White Blood Count 4.4 K/mm3 (4.4-11.0)
[2023-03-28 06:44] LABS: Anion Gap 6 (5-15); BUN 21 mg/dL (7-18); BUN/Creat Ratio 26.9 RATIO (10-20); Calcium,Total 9.2 mg/dL (8.5-10.1); Chloride 105 mmol/L (98-107); Creatinine, Serum 0.78 mg/dL (0.70-1.30); EST Glomerular Filtration Rate 103 mL/min (>60); Est Glom Filt Rate - Afr Amer 125 mL/min (>60); Estimated Creatinine Clearance 80.44 ml/min; Glucose 189 mg/dL (74-106); Potassium 4.2 mmol/L (3.5-5.1); Sodium Level 140 mmol/L (136-145)
[2023-03-28 06:45] LABS: Bedside Glucose 174 mg/dL (74-106)
[2023-03-28] MEDS: Fluticasone/Salmeterol 232-14 Inhaler 1 PUFF INHALATION ×2 (07:05→16:59)
[2023-03-28 07:06] VITALS: BP 146/71; PULSE 64
[2023-03-28] MEDS: Metoprolol(XL)Succ 50 MG Tablet PO (07:06)
[2023-03-28] MEDS: Senna/Docusate Sodium 1 Tablet PO ×2 (07:06→16:59)
[2023-03-28] MEDS: PARoxetine 10 MG Tablet PO (07:06)
[2023-03-28] MEDS: dilTIAZem CD 180 MG Capsule PO (07:07)
[2023-03-28] MEDS: Insulin Glargine-YFGN 100 UNIT/ML Pen 15 UNIT SC (07:08)
[2023-03-28] MEDS: Acetaminophen 500 MG Tablet 1000 MG PO ×3 (07:11→21:19)
[2023-03-28] MEDS: metFORMIN HCl 1,000 MG Tablet 1000 MG PO (09:05)
[2023-03-28] MEDS: Menthol/Lanolin/Calamine/Znox 113 GM Tube 1 APPLIC TOPICAL ×2 (09:08→21:30)
[2023-03-28 14:34] VITALS: BP 120/64; PULSE 64; RESP 16; TEMP 35.9; O2SAT 99
[2023-03-28] MEDS: Rivaroxaban 20 MG Tablet PO (16:59)
[2023-03-28] MEDS: Mirtazapine 15 MG Tablet 7.5 MG PO (21:19)
[2023-03-28] MEDS: QUEtiapine 25 MG Tablet PO (21:19)
[2023-03-28 22:00] VITALS: PULSE 63; RESP 14; O2SAT 97
[2023-03-29 05:46] VITALS: BP 112/62; PULSE 68
[2023-03-29] MEDS: PARoxetine 10 MG Tablet PO (05:46)
[2023-03-29] MEDS: dilTIAZem CD 180 MG Capsule PO (05:46)
[2023-03-29] MEDS: Senna/Docusate Sodium 1 Tablet PO ×2 (05:46→17:29)
[2023-03-29] MEDS: Fluticasone/Salmeterol 232-14 Inhaler 1 PUFF INHALATION ×2 (05:46→17:28)
[2023-03-29] MEDS: Acetaminophen 500 MG Tablet 1000 MG PO ×3 (05:46→21:59)
[2023-03-29] MEDS: Metoprolol(XL)Succ 50 MG Tablet PO (05:46)
[2023-03-29] MEDS: Insulin Glargine-YFGN 100 UNIT/ML Pen 15 UNIT SC (06:07)
[2023-03-29 06:40] LABS: Bedside Glucose 177 mg/dL (74-106)
[2023-03-29] MEDS: metFORMIN HCl 1,000 MG Tablet 1000 MG PO (08:14)
[2023-03-29] MEDS: Menthol/Lanolin/Calamine/Znox 113 GM Tube 1 APPLIC TOPICAL ×2 (13:29→22:01)
[2023-03-29 16:00] VITALS: BP 131/65; PULSE 66; RESP 16; TEMP 36.3; O2SAT 92
[2023-03-29] MEDS: Rivaroxaban 20 MG Tablet PO (17:28)
[2023-03-29] MEDS: Mirtazapine 15 MG Tablet 7.5 MG PO (21:56)
[2023-03-29] MEDS: QUEtiapine 25 MG Tablet PO (21:57)
[2023-03-30 06:21] VITALS: BP 125/66; PULSE 65
[2023-03-30 06:22] VITALS: PULSE 65
[2023-03-30] MEDS: dilTIAZem CD 180 MG Capsule PO (06:22)
[2023-03-30] MEDS: PARoxetine 10 MG Tablet PO (06:22)
[2023-03-30] MEDS: Metoprolol(XL)Succ 50 MG Tablet PO (06:22)
[2023-03-30] MEDS: Fluticasone/Salmeterol 232-14 Inhaler 1 PUFF INHALATION ×2 (06:23→18:59)
[2023-03-30] MEDS: Insulin Glargine-YFGN 100 UNIT/ML Pen 15 UNIT SC (06:23)
[2023-03-30] MEDS: Senna/Docusate Sodium 1 Tablet PO (06:23)
[2023-03-30 06:26] LABS: Bedside Glucose 192 mg/dL (74-106)
[2023-03-30] MEDS: Acetaminophen 500 MG Tablet 1000 MG PO ×3 (06:28→22:36)
[2023-03-30] MEDS: metFORMIN HCl 1,000 MG Tablet 1000 MG PO (11:28)
[2023-03-30] MEDS: Menthol/Lanolin/Calamine/Znox 113 GM Tube 1 APPLIC TOPICAL ×2 (11:29→21:51)
[2023-03-30 14:41] VITALS: BP 122/64; PULSE 72; RESP 14; TEMP 37.1; O2SAT 93
[2023-03-30] MEDS: Rivaroxaban 20 MG Tablet PO (18:58)
[2023-03-30 21:44] VITALS: PULSE 64; RESP 14; O2SAT 95
[2023-03-30] MEDS: Mirtazapine 15 MG Tablet 7.5 MG PO (22:33)
[2023-03-30] MEDS: QUEtiapine 25 MG Tablet PO (22:33)
--- NOTE | 2023-03-31 04:06 | NURSING ---
Pt c/o pain in coccyx area. Pt refuses to be repositioned on to either side despite education. Pt also denies pain medication @ this time.
[2023-03-31 06:40] LABS: Bedside Glucose 159 mg/dL (74-106)
[2023-03-31 06:51] VITALS: BP 150/75; PULSE 61
[2023-03-31] MEDS: Metoprolol(XL)Succ 50 MG Tablet PO (06:51)
[2023-03-31] MEDS: Insulin Glargine-YFGN 100 UNIT/ML Pen 15 UNIT SC (06:51)
[2023-03-31] MEDS: PARoxetine 10 MG Tablet PO (06:51)
[2023-03-31] MEDS: Senna/Docusate Sodium 1 Tablet PO (06:52)
[2023-03-31] MEDS: dilTIAZem CD 180 MG Capsule PO (06:52)
[2023-03-31] MEDS: Acetaminophen 500 MG Tablet 1000 MG PO ×3 (06:54→20:10)
[2023-03-31] MEDS: Fluticasone/Salmeterol 232-14 Inhaler 1 PUFF INHALATION ×2 (06:56→17:38)
[2023-03-31] MEDS: metFORMIN HCl 1,000 MG Tablet 1000 MG PO (10:52)
[2023-03-31] MEDS: Menthol/Lanolin/Calamine/Znox 113 GM Tube 1 APPLIC TOPICAL ×2 (10:54→20:12)
[2023-03-31 16:00] VITALS: BP 128/63; PULSE 66; RESP 14; TEMP 35.9; O2SAT 94
[2023-03-31] MEDS: Rivaroxaban 20 MG Tablet PO (17:38)
[2023-03-31] MEDS: Mirtazapine 15 MG Tablet 7.5 MG PO (20:09)
[2023-03-31] MEDS: QUEtiapine 25 MG Tablet PO (20:10)
[2023-04-01 06:26] VITALS: BP 154/76; PULSE 64
[2023-04-01] MEDS: Metoprolol(XL)Succ 50 MG Tablet PO (06:26)
[2023-04-01] MEDS: dilTIAZem CD 180 MG Capsule PO (06:26)
[2023-04-01] MEDS: Senna/Docusate Sodium 1 Tablet PO ×2 (06:26→16:45)
[2023-04-01] MEDS: PARoxetine 10 MG Tablet PO (06:27)
[2023-04-01] MEDS: Fluticasone/Salmeterol 232-14 Inhaler 1 PUFF INHALATION ×2 (06:27→16:45)
[2023-04-01] MEDS: Insulin Glargine-YFGN 100 UNIT/ML Pen 15 UNIT SC (06:29)
[2023-04-01] MEDS: Acetaminophen 500 MG Tablet 1000 MG PO ×3 (06:32→22:03)
[2023-04-01 06:55] LABS: Bedside Glucose 226 mg/dL (74-106)
[2023-04-01] MEDS: Menthol/Lanolin/Calamine/Znox 113 GM Tube 1 APPLIC TOPICAL ×2 (08:35→22:04)
[2023-04-01] MEDS: metFORMIN HCl 1,000 MG Tablet 1000 MG PO (08:35)
[2023-04-01 15:07] VITALS: BP 123/54; PULSE 73; RESP 16; TEMP 35.9; O2SAT 96
[2023-04-01] MEDS: Rivaroxaban 20 MG Tablet PO (16:44)
[2023-04-01 21:30] VITALS: PULSE 66; RESP 16; O2SAT 95
[2023-04-01] MEDS: Mirtazapine 15 MG Tablet 7.5 MG PO (22:03)
[2023-04-01] MEDS: QUEtiapine 25 MG Tablet PO (22:03)
[2023-04-02] MEDS: dilTIAZem CD 180 MG Capsule PO (05:39)
[2023-04-02] MEDS: Fluticasone/Salmeterol 232-14 Inhaler 1 PUFF INHALATION ×2 (05:39→17:42)
[2023-04-02] MEDS: Senna/Docusate Sodium 1 Tablet PO ×2 (05:39→17:42)
[2023-04-02 05:40] VITALS: BP 133/77; PULSE 69
[2023-04-02] MEDS: Acetaminophen 500 MG Tablet 1000 MG PO ×3 (05:40→20:49)
[2023-04-02] MEDS: Metoprolol(XL)Succ 50 MG Tablet PO (05:40)
[2023-04-02] MEDS: PARoxetine 10 MG Tablet PO (05:40)
[2023-04-02] MEDS: Insulin Glargine-YFGN 100 UNIT/ML Pen 15 UNIT SC (06:37)
[2023-04-02 06:50] LABS: Bedside Glucose 166 mg/dL (74-106)
[2023-04-02] MEDS: metFORMIN HCl 1,000 MG Tablet 1000 MG PO (09:00)
[2023-04-02] MEDS: Menthol/Lanolin/Calamine/Znox 113 GM Tube 1 APPLIC TOPICAL ×2 (09:01→20:50)
--- NOTE | 2023-04-02 13:54 | CASEMGMT ---
Addendum entered by Kyleigh Gutierrez 04/02/23 14:17: ST added to HHC order Original Note: Social Work presented to this worker's office to discuss DC. finalized DC date as 04/06, caregiver is hired daily for several hours each day. confirmed wanting a hospital bed and [facility] PT/OT. Family to transport. IDT updated. [facility] updated. [place] [facility] [place] [facility]. Plan: DC home with 04/06, [facility] PT/OT, hospital bed FRED Malone
[2023-04-02 16:00] VITALS: BP 135/63; PULSE 75; RESP 18; TEMP 35.9; O2SAT 99
[2023-04-02] MEDS: Rivaroxaban 20 MG Tablet PO (17:41)
--- NOTE | 2023-04-02 19:54 | DS.PCM_ITS ---
Providers Date of Admission: 03/13/23 Primary Care Physician: MYNOR Santoyo Reason For Visit: DKA Diagnosis Discharge Diagnosis (1) Debility: Status: Acute Code(s): R53.81 - Other malaise (2) Cervical spinal stenosis: Status: Acute Code(s): M48.02 - Spinal stenosis, cervical region (3) Cervical myelopathy: Status: Acute Code(s): G95.9 - Disease of spinal cord, unspecified (4) Right sided weakness: Status: Acute Code(s): R53.1 - Weakness (5) Cardiac arrest: Status: Acute Code(s): I46.9 - Cardiac arrest, cause unspecified (6) DKA (diabetic ketoacidosis): Status: Acute Code(s): E11.10 - Type 2 diabetes mellitus with ketoacidosis without coma (7) Acalculous cholecystitis: Status: Acute Code(s): K81.9 - Cholecystitis, unspecified (8) Diabetes mellitus: Status: Acute Code(s): E11.9 - Type 2 diabetes mellitus without complications (9) Hypertension: Status: Chronic Code(s): I10 - Essential (primary) hypertension (10) Hyperlipidemia: Status: Acute Code(s): E78.5 - Hyperlipidemia, unspecified (11) Atrial fibrillation: Status: Acute Code(s): I48.91 - Unspecified atrial fibrillation (12) COPD (chronic obstructive pulmonary disease): Status: Chronic Code(s): J44.9 - Chronic obstructive pulmonary disease, unspecified (13) Panic disorder: Status: Acute Code(s): F41.0 - Panic disorder [episodic paroxysmal anxiety] Plan 77 year old male with below past medical history significant for recent cervical spinal fusion (C3-C4) for progressive cervical myelopathy, quadriplegia, hospitalized for cardiac arrest, euglycemic diabetic ketoacidosis, acalculous cholecystitis, admitted to TCU with debility, here for rehabilitation, strengthening, prior to discharge home with . * Debility - PT/OT. * Cognition - ST. * Pain - Tylenol 1000mg q6h prn pain (1-10). * Bowel - Senna/colace 1 tablet bid, MOM 30ml po x 1 prn. * Adult immunization - Administer pneumonia vaccine, covid19 vaccine, flu vaccine as appropriate. * DVT prophylaxis - already on Xarelto. * Atrial fibrillation - Metoprolol succinate 100mg daily, Diltiazem CD 180mg daily, Xarelto 20mg daily. * COPD - Advair 232-14 1 puff bid. * Nutrition - Glucerna Shake 120ml tidcm. * Diabetes Mellitus II - Metformin 1000mg daily, Glargine 15 units sc daily. * Hypertension - Metoprolol succinate 100mg daily, Diltiazem CD 180mg daily, Lisinopril 20mg daily. * Insomnia - Melatonin 10mg qhs. 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 * Muscle spasm - Tizanidine 4mg q8h prn. Medications at Discharge Home Medications fluticasone 250 mcg-salmeterol 50 mcg/dose blistr powdr for inhalation (Advair Diskus) 1 inh inhalation BID asthma 09/23/22 diltiazem HCl 180 mg capsule,24 hr,extended release (Tiazac) 180 mg PO DAILY heart 03/13/23 insulin glargine 100 unit/mL (3 mL) subcutaneous pen 15 unit subcut DAILY blood sugar 03/13/23 metformin 1,000 mg tablet 1,000 mg PO DAILY blood sugar 03/13/23 rivaroxaban 20 mg tablet (Xarelto) 20 mg PO DAILY blood thinner 03/13/23 sennosides 8.6 mg-docusate sodium 50 mg tablet (Senna-S) 8.6 - 50 tab PO DAILY PRN Constipation 03/13/23 acetaminophen 500 mg tablet 1,000 mg PO TID #0 tabs 04/02/23 metoprolol succinate 50 mg tablet,extended release 24 hr 50 mg PO DAILY 30 days #30 tabs 04/02/23 mirtazapine 15 mg tablet 7.5 mg PO QHS 30 days #15 tabs 04/02/23 paroxetine HCl 10 mg tablet 10 mg PO DAILY 30 days #30 tabs 04/02/23 quetiapine 25 mg tablet 25 mg PO QHS 30 days #30 tabs 04/02/23 tizanidine 2 mg tablet 4 mg PO Q8H PRN muscle relaxer 30 days #90 tabs 04/02/23 Hospital Course Operations - (See below.) Procedures None Summary of Care Provided Minutes Spent on Discharge: 35 Hospital Course: 77 year old male with below past medical history significant for recent cervical spinal fusion (C3-C4) for progressive cervical myelopathy, quadriplegia, hospitalized for cardiac arrest, euglycemic diabetic ketoacidosis, acalculous cholecystitis, admitted to TCU with debility, here for rehabilitation, strengthening, prior to discharge home with . Discharge home with 04/06/2023, [facility] PT/OT, Hospital Bed. Physical Exam Const alert General Appearance: cooperative HEENT normocephalic Eyes PERRL and EOMs intact bilaterally Neck supple, no JVD and no carotid bruits Resp normal respiratory effort, normal air movement and clear to auscultation bilaterally Cardio regular rate and regular rhythm GI normal to inspection, nondistended, normoactive bowel sounds, non-tender and non-distended Extremity normal capillary refill General Extremity: Negative for edema Skin no rashes or lesions noted General Skin Exam: no breakdown Psych affect normal Appearance: appropriate Medical Records Data Medical Nutrition Assessment Dietitian: Malnutrition Criteria Met Start: 03/21/23 12:12 Freq: Status: Active Protocol: Document 03/21/23 12:12 [facility] (Rec: 03/21/23 12:12 [facility] [id number]) Nutrition Malnutrition Evidence of Malnutrition Exists Yes Malnutrition (severe): Acute Illness/Injury Evidenced By Suboptimal Energy Intake ( Severe),Weight Loss (Severe) Clinical Problem Acute Disease or Injury Related Malnutrition Etiology related to recent surgery leaving res w/ no appetite and inadequate energy intake and also, difficulty w/ self feeding Signs/Symptoms as evidenced by res w/ <50% po intake of estimated nutritional needs and 8.8% wt loss of UBW x ~ 1 mo/ 4.6% wt loss since adm. Status Active Problem Altered Nutrient-Related Laboratory Values Status Inactive Problem Altered GI Function Status Inactive Problem Recommendation Dietitian Recommendations/Changes Will liberalize diet to Regular d/t s/s of malnutrition Will discontinue glucerna shake tid w/ medpass and provide 8 oz chocolate GS and regular chocolate ice cream w/ lunch and chocolate magic cup and pretzels with hummus w/ dinner per res preferences. Res does not want foods mech altered or other strategies to help w/ self feeding. Res does not want appetite stimulant at this time. Weight / BMI Weight Weight: 101.423 kg Body Mass Index (BMI) 26.5 ABG / Lab / Microbiology Data Result Diagrams: 03/28/23 05:42 03/28/23 05:42 Laboratory: Laboratory Results - last 24 hr 04/02/23 06:23: POC Glucose 166 H Microbiology: Microbiology 03/17/23 06:35 Nasal Secretion SARS-CoV-2 Antigen (Rapid) - Final 03/15/23 06:25 Nasal Secretion SARS-CoV-2 Antigen (Rapid) - Final 03/13/23 15:45 Nasal Secretion SARS-CoV-2 Antigen (Rapid) - Final D/C Instructions Discharge Diet: No restrictions Discharge Activity: Return to Normal Activity, May Shower and Use Walker Weight Bearing Status: Weight bearing as tolerated Call your doctor if you observe: Fever of 101 or Higher, Inability to urinate, Inability to have a bowel movement, Shortness of breath, Dizziness, Fainting spells, Swelling in the ankles, Chest pain and Uncontrolled pain Additional Instructions: Discharge home with 04/06/2023, [facility] Care PT/OT, Hospital Bed. Please Follow Up With: Dr. Parvin Rosario When: As scheduled. Meaningful Use Info Meaningful Use Diagnoses (Choose all that apply): None applicable Discharge Plan Admission Admit Date/Time: 03/13/23 14:48 Primary Reason for Your Visit: Debility. Attending Provider: Segundo Archibald Chi Primary Care Provider: Ghazala Beck NP Instructions Additional Instructions / Restrictions: Discharge home with 04/06/2023, [facility] Care PT/OT, Hospital Bed. Discharge Orders/Prescriptions Prescriptions: New acetaminophen 500 mg Tablet 1,000 mg PO TID Qty: 0 0RF quetiapine 25 mg Tablet 25 mg PO QHS 30 Days Qty: 30 0RF paroxetine HCl 10 mg Tablet 10 mg PO DAILY 30 Days Qty: 30 0RF tizanidine 2 mg Tablet 4 mg PO Q8H PRN (Reason: muscle relaxer) 30 Days Qty: 90 0RF metoprolol succinate 50 mg Tablet Extended Release 24 Hr 50 mg PO DAILY 30 Days Qty: 30 0RF mirtazapine 15 mg Tablet 7.5 mg PO QHS 30 Days Qty: 15 0RF Continued fluticasone propion-salmeterol [Advair Diskus] 250-50 mcg/dose blister with device 1 inh INHALATION BID sennosides-docusate sodium [Senna-S] 8.6-50 mg Tablet 8.6 - 50 tab PO DAILY PRN (Reason: Constipation) metformin 1,000 mg Tablet 1,000 mg PO DAILY insulin glargine 100 unit/mL (3 mL) Insulin Pen 15 unit SUBCUT DAILY Xarelto 20 mg tablet 20 mg PO DAILY diltiazem HCl [Tiazac] 180 mg Capsule,Extended Release 24 Hr 180 mg PO DAILY Discontinued quetiapine 25 mg Tablet 25 mg PO QHS tizanidine 4 mg Tablet 4 mg PO Q8H PRN (Reason: muscle relaxer) acetaminophen 500 mg Tablet 1,000 mg PO Q8H PRN (Reason: Pain) docusate sodium 100 mg Capsule 100 mg PO BID insulin lispro 100 unit/mL Insulin Pen 0 - 6 unit SUBCUT ACHS melatonin 10 mg Tablet 10 mg PO QHS lisinopril 20 mg tablet 20 mg PO DAILY metoprolol succinate 100 mg tablet extended release 24 hr 100 mg PO DAILY Referrals / Follow Up: Ghazala Beck NP, TRAFFIC OPERATOR-C [Primary Care Provider] - Disposition Disposition (needs filled in before D/C Order can be placed): Home Health Service
[2023-04-02] MEDS: Mirtazapine 15 MG Tablet 7.5 MG PO (20:49)
[2023-04-02] MEDS: QUEtiapine 25 MG Tablet PO (20:50)
[2023-04-03 06:41] LABS: Bedside Glucose 180 mg/dL (74-106)
[2023-04-03 06:47] VITALS: BP 142/70; PULSE 63
[2023-04-03] MEDS: PARoxetine 10 MG Tablet PO (06:47)
[2023-04-03] MEDS: Fluticasone/Salmeterol 232-14 Inhaler 1 PUFF INHALATION ×2 (06:47→18:03)
[2023-04-03] MEDS: Senna/Docusate Sodium 1 Tablet PO ×2 (06:47→18:03)
[2023-04-03] MEDS: Metoprolol(XL)Succ 50 MG Tablet PO (06:47)
[2023-04-03] MEDS: Insulin Glargine-YFGN 100 UNIT/ML Pen 15 UNIT SC (06:48)
[2023-04-03] MEDS: dilTIAZem CD 180 MG Capsule PO (06:48)
[2023-04-03] MEDS: Acetaminophen 500 MG Tablet 1000 MG PO ×3 (06:48→21:05)
[2023-04-03] MEDS: Menthol/Lanolin/Calamine/Znox 113 GM Tube 1 APPLIC TOPICAL ×2 (08:24→21:05)
[2023-04-03] MEDS: metFORMIN HCl 1,000 MG Tablet 1000 MG PO (08:24)
[2023-04-03 14:38] VITALS: BP 126/55; PULSE 71; RESP 20; TEMP 36.2; O2SAT 96
[2023-04-03 16:15] VITALS: BMI 26.6
[2023-04-03] MEDS: Rivaroxaban 20 MG Tablet PO (18:03)
[2023-04-03] MEDS: QUEtiapine 25 MG Tablet PO (21:05)
[2023-04-03] MEDS: Mirtazapine 15 MG Tablet 7.5 MG PO (21:05)
[2023-04-03 21:10] VITALS: PULSE 78; RESP 14; O2SAT 95
[2023-04-04 06:10] LABS: Absolute Lymphocyte Count 0.92 X10^3/uL (0.83-4.51); Basophil# 0.03 X10^3/uL; Basophil% 0.7 % (0-1); Eosinophil# 0.16 X10^3/uL; Eosinophils% 3.6 % (0-5); Hemoglobin 11.4 g/dL (13.0-16.5); Lymphocyte # 0.92 X10^3/ul (0.83-4.51); Lymphocyte % 20.7 % (19-41); Mean Corp Hgb Conc 31.7 g/dL (32-36); Mean Corpuscular Hgb 29.6 pg (27.0-32.0); Mean Corpuscular Volume 93.5 fL (80-94); Mean Platelet Vol. 8.8 fl (6.2-12.0); Monocyte# 0.34 X10^3/uL; Monocyte% 7.7 % (0-10); NRBC Flagged by Analyzer 0 % (0-5); Neutrophil # 2.96 X10^3/uL (2.7-7.7); Neutrophil % 66.6 % (47-70); Platelet Count 162 K/mm3 (150-450); RBC Distribution Width CV 13.6 % (11.6-14.6); RBC Distribution Width SD 46.4 fl (35.1-43.9); Red Blood Count 3.85 M/mm3 (4.6-6.2); White Blood Count 4.4 K/mm3 (4.4-11.0)
[2023-04-04] MEDS: Fluticasone/Salmeterol 232-14 Inhaler 1 PUFF INHALATION ×2 (06:13→17:38)
[2023-04-04 06:14] VITALS: BP 134/71; PULSE 60
[2023-04-04] MEDS: Senna/Docusate Sodium 1 Tablet PO ×2 (06:14→17:39)
[2023-04-04] MEDS: PARoxetine 10 MG Tablet PO (06:14)
[2023-04-04] MEDS: Metoprolol(XL)Succ 50 MG Tablet PO (06:14)
[2023-04-04] MEDS: dilTIAZem CD 180 MG Capsule PO (06:14)
[2023-04-04] MEDS: Insulin Glargine-YFGN 100 UNIT/ML Pen 15 UNIT SC (06:16)
[2023-04-04] MEDS: Acetaminophen 500 MG Tablet 1000 MG PO ×3 (06:21→21:21)
[2023-04-04 06:36] LABS: Bedside Glucose 195 mg/dL (74-106)
[2023-04-04 07:06] LABS: Anion Gap 6 (5-15); BUN 23 mg/dL (7-18); BUN/Creat Ratio 30.1 RATIO (10-20); Calcium,Total 8.9 mg/dL (8.5-10.1); Chloride 106 mmol/L (98-107); Creatinine, Serum 0.76 mg/dL (0.70-1.30); EST Glomerular Filtration Rate 106 mL/min (>60); Est Glom Filt Rate - Afr Amer 128 mL/min (>60); Estimated Creatinine Clearance 80.44 ml/min; Glucose 205 mg/dL (74-106); Sodium Level 140 mmol/L (136-145)
[2023-04-04] MEDS: metFORMIN HCl 1,000 MG Tablet 1000 MG PO (08:34)
[2023-04-04] MEDS: Menthol/Lanolin/Calamine/Znox 113 GM Tube 1 APPLIC TOPICAL ×2 (08:39→21:26)
[2023-04-04 14:48] VITALS: BP 125/60; PULSE 68; RESP 16; TEMP 35.9; O2SAT 95
[2023-04-04] MEDS: Rivaroxaban 20 MG Tablet PO (17:38)
[2023-04-04] MEDS: QUEtiapine 25 MG Tablet PO (21:21)
[2023-04-04] MEDS: Mirtazapine 15 MG Tablet 7.5 MG PO (21:21)
[2023-04-05] MEDS: Acetaminophen 500 MG Tablet 1000 MG PO ×3 (06:20→21:04)
[2023-04-05] MEDS: Senna/Docusate Sodium 1 Tablet PO ×2 (06:20→17:48)
[2023-04-05 06:21] VITALS: BP 136/71; PULSE 68
[2023-04-05] MEDS: Metoprolol(XL)Succ 50 MG Tablet PO (06:21)
[2023-04-05] MEDS: Fluticasone/Salmeterol 232-14 Inhaler 1 PUFF INHALATION ×2 (06:21→17:49)
[2023-04-05] MEDS: PARoxetine 10 MG Tablet PO (06:21)
[2023-04-05] MEDS: dilTIAZem CD 180 MG Capsule PO (06:21)
[2023-04-05 06:25] LABS: Bedside Glucose 217 mg/dL (74-106)
[2023-04-05] MEDS: Insulin Glargine-YFGN 100 UNIT/ML Pen 15 UNIT SC (06:26)
[2023-04-05 07:11] VITALS: BP 136/71; PULSE 68
[2023-04-05] MEDS: metFORMIN HCl 1,000 MG Tablet 1000 MG PO (07:43)
[2023-04-05] MEDS: Menthol/Lanolin/Calamine/Znox 113 GM Tube 1 APPLIC TOPICAL ×2 (07:44→21:04)
[2023-04-05 08:27] VITALS: PULSE 66
--- NOTE | 2023-04-05 09:47 | CASEMGMT ---
Social Work BIMS () and PHQ-9 (12/08) completed for MDS assessment. Kyleigh Gutierrez MSW CASTING AND PASTING SUPERVISOR
--- NOTE | 2023-04-05 12:39 | MDS.RN ---
Pain interview for ANUPAM 04/06/23 completed for MDS assessment.
[2023-04-05 16:00] VITALS: BP 117/60; PULSE 62; RESP 14; TEMP 36.2; O2SAT 96
[2023-04-05] MEDS: Rivaroxaban 20 MG Tablet PO (17:48)
[2023-04-05] MEDS: Mirtazapine 15 MG Tablet 7.5 MG PO (21:04)
[2023-04-05] MEDS: QUEtiapine 25 MG Tablet PO (21:04)
[2023-04-06 05:35] VITALS: BP 132/67; PULSE 64
[2023-04-06] MEDS: Metoprolol(XL)Succ 50 MG Tablet PO (05:35)
[2023-04-06] MEDS: Acetaminophen 500 MG Tablet 1000 MG PO (05:35)
[2023-04-06] MEDS: dilTIAZem CD 180 MG Capsule PO (05:36)
[2023-04-06] MEDS: Senna/Docusate Sodium 1 Tablet PO (05:36)
[2023-04-06] MEDS: Fluticasone/Salmeterol 232-14 Inhaler 1 PUFF INHALATION (05:36)
[2023-04-06] MEDS: PARoxetine 10 MG Tablet PO (05:36)
[2023-04-06 06:34] LABS: Bedside Glucose 219 mg/dL (74-106)
[2023-04-06] MEDS: Insulin Glargine-YFGN 100 UNIT/ML Pen 15 UNIT SC (07:09)
[2023-04-06] MEDS: metFORMIN HCl 1,000 MG Tablet 1000 MG PO (08:22)
[2023-04-06] MEDS: Menthol/Lanolin/Calamine/Znox 113 GM Tube 1 APPLIC TOPICAL (08:23)
== END 2023-04-06 11:15 | disposition home health service (06) | DRG 559 ==
PROVIDERS: Admitting Provider Family Medicine Geriatric Medicine; PCP Nurse Practitioner; Referring Provider Family Medicine Geriatric Medicine; Visit Provider Family Medicine Geriatric Medicine
DX: Z47.89 Encounter for other orthopedic aftercare (principal); E11.10 Type 2 diabetes mellitus with ketoacidosis without coma; G82.50 Quadriplegia, unspecified; G95.9 Disease of spinal cord, unspecified; F03.918 Unspecified dementia, unspecified severity, with other behavioral disturbance; M48.02 Spinal stenosis, cervical region; Z86.74 Personal history of sudden cardiac arrest; I48.0 Paroxysmal atrial fibrillation; K81.9 Cholecystitis, unspecified; J44.9 Chronic obstructive pulmonary disease, unspecified; Z79.4 Long term (current) use of insulin; E78.00 Pure hypercholesterolemia, unspecified; I10 Essential (primary) hypertension; F41.9 Anxiety disorder, unspecified; F41.0 Panic disorder [episodic paroxysmal anxiety]; Z79.51 Long term (current) use of inhaled steroids; Z98.1 Arthrodesis status; Z79.899 Other long term (current) drug therapy; Z79.84 Long term (current) use of oral hypoglycemic drugs; G47.00 Insomnia, unspecified; Z23 Encounter for immunization
CPT/HCPCS: 36415; 72040; 80048; 82962; 85025; 87811; 90677; 92507; 92610; 96125; 97110; 97116; 97129; 97130; 97162; 97166; 97530; 97535; 97802; G0009; J7030; A4216

== ENCOUNTER → 2023-03-28 | Outpatient (CLI) | payer MEDICARE, SELFPAY ==
--- NOTE | 2023-03-28 09:26 | VDUE_ITS ---
Reason For Study: Bilateral arm swelling Right Proximal Left Proximal Right jugular vein is spontaneous, widely Left jugular vein is spontaneous, widely patent, phasic, with no intraluminal patent, phasic, with no intraluminal echogenicity noted. echogenicity noted. Right subclavian vein is spontaneous, widely Left subclavian vein is spontaneous, widely patent, phasic, with no intraluminal patent, phasic, with no intraluminal echogenicity noted. echogenicity noted. Right Lower Arm Left Arm Right radial vein is compressible. Left axillary vein is spontaneous, patent, Right ulnar vein is compressible. phasic, competent, compressible and Right Arm demonstrates augmentation. Right axillary vein is spontaneous, patent, Left brachial vein is compressible. phasic, competent, compressible and Left cephalic vein is compressible. demonstrates augmentation. IV noted in the left Cephalic vein at Right brachial vein is compressible. antecube. Acute superficial vein trhombosis is noted in Left basilic vein is compressible. the right cephalic vein mid forearm. Appears Left Lower Arm recent IV placement. Left radial vein is compressible. Remaining Cephalic V is compressible. Left ulnar vein is compressible. Right basilic vein is compressible. Patient Safety Preliminary report given to TCU. VL/Venous Duplex US - Sherman Extrem Interpretation Summary No evidence for acute deep venous thrombosis right upper extremity Superficial thrombophlebitis right mid forearm cephalic vein at reported site o f previous IV No evidence for acute deep vein thrombosis left upper extremity with patent and compressible cephalic and basilic veins Ordering Physician: Segundo Archibald Chi Referring Physician: Ghazala Beck Performed By: Shira Ross RVT ???
== END | disposition home or self-care (01) ==
LOC: CVS 09:26
PROVIDERS: PCP Nurse Practitioner; Referring Provider Family Medicine Geriatric Medicine; Visit Provider Family Medicine Geriatric Medicine
DX: R22.33 Localized swelling, mass and lump, upper limb, bilateral (principal)
CPT/HCPCS: 93970

== ENCOUNTER → 2024-07-09 | Outpatient (CLI) | payer MEDICARE, SELFPAY ==
[2024-07-09 21:40] LABS: Absolute Lymphocyte Count 1.11 X10^3/uL (0.83-4.51); Absolute Neutrophil Count 5.3 X10^3/uL (2.0-7.7); Basophil# 0.07 X10^3/uL; Basophil% 0.9 % (0-1); Eosinophil# 0.49 X10^3/uL; Eosinophils% 6.6 % (0-5); Hematocrit 49.3 % (40-54); Hemoglobin 16.4 g/dL (13.0-16.5); Lymphocyte # 1.11 X10^3/ul (0.83-4.51); Mean Corp Hgb Conc 33.3 g/dL (32-36); Mean Corpuscular Hgb 29.6 pg (27.0-32.0); Mean Platelet Vol. 9.4 fl (6.2-12.0); Monocyte# 0.42 X10^3/uL; Monocyte% 5.7 % (0-10); NRBC Flagged by Analyzer 0 % (0-5); Neutrophil # 5.27 X10^3/uL (2.7-7.7); Neutrophil % 71.5 % (47-70); Platelet Count 259 K/mm3 (150-450); RBC Distribution Width SD 42.9 fl (35.1-43.9); Red Blood Count 5.54 M/mm3 (4.6-6.2); White Blood Count 7.4 K/mm3 (4.4-11.0)
[2024-07-09 22:14] LABS: ALB/GLOB Ratio 1.1 RATIO (0.9-2.4); AST(SGOT) 21 U/L (15-37); Alanine Aminotransfer ALT/SGPT 36 U/L (16-61); Albumin, Serum 3.9 g/dL (3.2-5.0); Alkaline Phosphatase 98 U/L (45-117); Anion Gap 9 (5-15); BUN 17 mg/dL (7-18); BUN/Creat Ratio 18.2 RATIO (10-20); Calcium,Total 9.5 mg/dL (8.5-10.1); Chloride 107 mmol/L (98-107); Cholesterol 159 mg/dL (200); Creatinine, Serum 0.93 mg/dL (0.70-1.30); EST Glomerular Filtration Rate 84 mL/min (>60); Est Glom Filt Rate - Afr Amer 101 mL/min (>60); Globulin 3.4 g/dL (2.2-4.2); Glucose 216 mg/dL (74-106); High Density Lipoprotein 53 mg/dL; Protein, Total 7.3 g/dL (6.4-8.2); Sodium Level 141 mmol/L (136-145); Triglycerides 174 mg/dL; Very Low Density Lipoprotein 35 mg/dL (5-40)
== END | disposition home or self-care (01) ==
PROVIDERS: PCP Nurse Practitioner; Referring Provider Nurse Practitioner; Visit Provider Nurse Practitioner
DX: Z12.5 Encounter for screening for malignant neoplasm of prostate (principal); I48.0 Paroxysmal atrial fibrillation; I10 Essential (primary) hypertension; E78.5 Hyperlipidemia, unspecified; R35.0 Frequency of micturition
CPT/HCPCS: 80053; 80061; 84153; 85025; G0103

== ENCOUNTER → 2025-03-18 | Outpatient (CLI) | payer MEDICARE, SELFPAY ==
[2025-03-18 21:56] LABS: Absolute Lymphocyte Count 1.04 X10^3/uL (0.83-4.51); Absolute Neutrophil Count 5.7 X10^3/uL (2.0-7.7); Basophil# 0.07 X10^3/uL; Basophil% 0.9 % (0-1); Eosinophil# 0.36 X10^3/uL; Eosinophils% 4.7 % (0-5); Hematocrit 47.5 % (40-54); Hemoglobin 15.6 g/dL (13.0-16.5); Lymphocyte # 1.04 X10^3/ul (0.83-4.51); Lymphocyte % 13.6 % (19-41); Mean Corp Hgb Conc 32.8 g/dL (32-36); Mean Corpuscular Volume 88.3 fL (80-94); Mean Platelet Vol. 9.1 fl (6.2-12.0); Monocyte# 0.43 X10^3/uL; Monocyte% 5.6 % (0-10); NRBC Flagged by Analyzer 0 % (0-5); Neutrophil # 5.72 X10^3/uL (2.7-7.7); Neutrophil % 74.5 % (47-70); Platelet Count 255 K/mm3 (150-450); RBC Distribution Width CV 13.3 % (11.6-14.6); RBC Distribution Width SD 42.8 fl (35.1-43.9); Red Blood Count 5.38 M/mm3 (4.6-6.2); White Blood Count 7.7 K/mm3 (4.4-11.0)
[2025-03-18 22:18] LABS: ALB/GLOB Ratio 1.5 RATIO (0.9-2.4); AST(SGOT) 20 U/L (<=37); Alanine Aminotransfer ALT/SGPT 19 U/L (<=46); Albumin, Serum 4.4 g/dL (3.4-4.8); Alkaline Phosphatase 112 U/L (40-129); Anion Gap 15 (5-15); BUN 22 mg/dL (4-19); BUN/Creat Ratio 18.7 RATIO (10-20); Calcium,Total 9.8 mg/dL (7.6-11.0); Chloride 100 mmol/L (98-108); Cholesterol 161 mg/dL (<=200); Creatinine, Serum 1.19 mg/dL (0.70-1.20); EST Glomerular Filtration Rate 63 (>60); Glucose 250 mg/dL (70-99); High Density Lipoprotein 55 mg/dL; Low Density Lipoprotein Calc. 74 mg/dL; PSA,Total- Diagnostic 3.36 ng/mL (0.00-4.00); Potassium 4.5 mmol/L (3.3-5.1); Protein, Total 7.4 g/dL (5.9-8.4); Sodium Level 138 mmol/L (133-145); Total Bilirubin 0.69 mg/dL (0.00-1.30); Triglycerides 159 mg/dL; Very Low Density Lipoprotein 32 mg/dL (5-40); cholesterol:hdl ratio screen 2.93
[2025-03-18 22:46] LABS: Hemoglobin A1c 10.5 % (<=5.6)
== END | disposition home or self-care (01) ==
PROVIDERS: PCP Nurse Practitioner; Referring Provider Nurse Practitioner; Visit Provider Nurse Practitioner
DX: I10 Essential (primary) hypertension (principal); G91.2 (Idiopathic) normal pressure hydrocephalus; I48.0 Paroxysmal atrial fibrillation; E11.65 Type 2 diabetes mellitus with hyperglycemia; E78.5 Hyperlipidemia, unspecified; N40.0 Benign prostatic hyperplasia without lower urinary tract symptoms; Z86.73 Personal history of transient ischemic attack (TIA), and cerebral infarction without residual deficits
CPT/HCPCS: 80053; 80061; 83036; 84153; 85025